=== PATIENT | female | born 1955 | race Caucasian/White ===

== ENCOUNTER 2017-05-15 19:31 | Emergency (ER) | payer BC, OTHER ==
--- NOTE | 2017-05-15 21:29 | UC ---
Skin Complaint HPI - HPI Summary HPI Summary: 62 y/o female present to the urgent care c/o a rash in her forehead and chin since Tuesday after he visit the etcher aircraft. Pt reports she was place in the etcher aircraft machine, her itchiness started, then she developed some discrete blisters. She states she takes Vancyclovir on a regular basis for prevention of shingles. However she thinks is something else. She request a wound culture since the pt that was placed in that machine had a rash in his skin. Pt denies fever, SOB, Chest pain , N/V/D. Pt states she is allergic to Benadryl, her Tylenol PM is helping with the itchiness. - History of Current Complaint Chief Complaint: UCSkin Time Seen by Provider: 05/15/17 20:59 Stated Complaint: ITCHY RASHES ON FACE Hx Obtained From: Patient Hx Last Menstrual Period: menopausal ?: No Onset/Duration: Sudden Onset, Lasting Days, Still Present Skin Exposure Onset/Duration: Days Ago Timing: Constant Onset Severity: Mild Current Severity: Mild Pain Intensity: 0 Pain Scale Used: 0-10 Numeric Location: Discrete - redness with some blisters. Character: Pruritus, Redness Aggravating: Nothing Alleviating: OTC Meds Associated Signs & Symptoms: Positive: Negative. Negative: Nausea, Vomiting, Fever, Tenderness, Joint Swelling - Allergy/Home Medications Allergies/Adverse Reactions: Allergies Allergy/AdvReac Type Severity Reaction Status Date / Time Penicillins Allergy Severe Unknown Verified 12/27/16 08:53 Reaction Details Adhesive Tape Allergy Rash Verified 12/27/16 08:53 Diphenhydramine AdvReac Anxiety Verified 12/27/16 08:53 [From Benadryl] FLAX SEED Allergy Rash Uncoded 12/27/16 08:53 Home Medications: Home Medications Tizanidine HCl [Zanaflex] 2 mg PO 05/15/17 [History] Review of Systems Constitutional: Negative Skin: Rash - discrete red eruption in face and chin Eyes: Negative ENT: Negative Respiratory: Negative Cardiovascular: Negative Gastrointestinal: Negative Genitourinary: Negative Motor: Negative Neurovascular: Negative Musculoskeletal: Negative Neurological: Negative Psychological: Negative All Other Systems Reviewed And Are Negative: Yes PMH/Surg Hx/FS Hx/Imm Hx Previously Healthy: Yes Other Endocrine History: fibromyalgia, Cardiovascular History: Hypertension Neurological History: Other Other Neurological History: Neuropathy - Surgical History Surgical History: Yes Surgery Procedure, Year, and Place: hysterectomy. x 4. tonsills. lumpectomy bilat shoulder - 2 SURGERIES. COLONOSCOPY- [facility] 2015 [place] - Family History Known Family History: Positive: None - Pt denies any FMHx - Social History Occupation: Retired Lives: With Family Alcohol Use: None Substance Use Type: None Smoking Status (MU): Former Smoker Type: Cigarettes Amount Used/How Often: 1/2 PPDX 4 YEARS Have You Smoked in the Last Year: No When Did the Patient Quit Smoking/Using Tobacco: 1973 - Immunization History Most Recent Tetanus Shot: Jul 2015 Physical Exam Triage Information Reviewed: Yes Appearance: Well-Appearing, No Pain Distress, Well-Nourished, Obese Vital Signs: Initial Vital Signs Temp 97.2 F 05/15/17 19:38 Pulse 77 05/15/17 19:38 Resp 18 05/15/17 19:38 BP 128/66 05/15/17 19:38 Pulse Ox 97 05/15/17 19:38 Vital Signs Reviewed: Yes Eye Exam: Normal Eyes: Positive: Conjunctiva Clear - PERRLA, EOMI, Fundi grossly normal ENT Exam: Normal ENT: Positive: Normal ENT inspection, Hearing grossly normal, Pharynx normal, TMs normal Dental Exam: Normal Neck exam: Normal Respiratory Exam: Normal Respiratory: Positive: Chest non-tender, Lungs clear, Normal breath sounds Cardiovascular Exam: Normal Cardiovascular: Positive: RRR, No Murmur, Pulses Normal Abdominal Exam: Normal Abdomen Description: Positive: Nontender, No Organomegaly, Soft. Negative: CVA Tenderness (R), CVA Tenderness (L) Bowel Sounds: Positive: Present Musculoskeletal Exam: Normal Musculoskeletal: Positive: Strength Intact, ROM Intact, No Edema Neurological Exam: Normal Psychological Exam: Normal Skin: Positive: rashes - left side of forehead with discrete erythemaous eruption w/ 3 blisters, non tender to palaption. Chin woth similar eruption and 4 blisters with clear discharge. Course/Dx - Course Course Of Treatment: 62 y/o female present to the urgent care c/o a rash in her forehead and chin since Tuesday after he visit the etcher aircraft. Pt reports she was place in the etcher aircraft machine, her itchiness started, then she developed some discrete blisters. She states she takes Vancyclovir on a regular basis for prevention of shingles. However she thinks is something else. She request a wound culture since the pt that was placed in that machine had a rash in his skin. Pt denies fever, SOB, Chest pain , N/V/D. Pt states she is allergic to Benadryl, her Tylenol PM is helping with the itchiness. HX obtained. PE abnormal findings:left side of forehead with discrete erythemaous eruption w/ 3 blisters, non tender to palaption. Chin woth similar eruption and 4 blisters with clear discharge. Pt already taking Vancyclovir prophilactically for shingles. Wound cultures taken from the chin and ordered also for herpes. Pt Rx BAcitracin topical oinment to apply TID . Pt advised that if anything else abnormal returns from lab, she will receive a call from us. Or if symptoms worsent to return to the urgent care of f/u with her PCP. Pt understood and agreed. - Differential Diagnoses - Skin Complaint Differential Diagnoses: Allergic Reaction, Cellulitis, Eczema, Urticaria, Varicella Zoster - Diagnoses Provider Diagnoses: unspecified rash r/o herpes zoster Discharge - Discharge Plan Condition: Stable Disposition: HOME Prescriptions: Bacitracin OINTMENT* 1 applic TOPICAL TID #1 tube Patient Education Materials: Acute Rash (ED), Shingles (ED) Referrals: Odessa Odom MD [Primary Care Provider] - 1 Week Additional Instructions: Please apply topical antibiotic in affected area as indicated. Specimen sent to lab, if anything abnormal you will receive a call from us for further treatment. Continue taking the Vancyclovir as directed. If you do not improve or if symptoms worsen after the course of antibiotics, you should either follow up with your PCP or return to the urgent care for further evaluation and treatment.
[2017-05-15 21:36] VITALS: BP 156/74
== END 2017-05-15 21:30 | disposition home or self-care (01) ==
LOC: UCEAST 19:31
DX: R21 Rash and other nonspecific skin eruption (principal)
CPT/HCPCS: 87070; 87205; 87529; 99212; G0463

== ENCOUNTER 2017-11-14 05:56 | Emergency (ER) | payer BC ==
[2017-11-14] MEDS ORDERED: Metoclopramide IV* 5 MG/ML 2 ML VIAL IV ONE (07:48)
[2017-11-14] MEDS ORDERED: Ketorolac INJ* 30 MG/ML 1 ML VIAL IV ONE (07:48)
[2017-11-14] MEDS ORDERED: NS 0.9% 1000 ML* 1,000 ML IV ONE (07:48)
[2017-11-14 09:53] LABS: ABS Basophils 0.1 10^3/ul (0-0.2); ABS Eosinophils 0.1 10^3/ul (0-0.6); ABS Lymphocytes 2.8 10^3/ul (1.0-4.8); ABS Monocytes 0.3 10^3/ul (0-0.8); ABS Neutrophils 4.6 10^3/ul (1.5-7.7); ABS Nucleated RBC 0 10^3/ul; Eosinophil % 0.9 % (0-6); Hematocrit 41 % (35-47); Hemoglobin 13.8 g/dl (12.0-16.0); Mean Corpuscular HGB Conc 34 g/dl (31-36); Mean Corpuscular Hemoglobin 31 pg (27-31); Mean Corpuscular Volume 92 fL (80-97); Mean Platelet Volume 8 um3 (7.4-10.4); Nucleated Red Blood Cells % 0; Platelet Count 266 10^3/ul (150-450); Red Blood Count 4.44 10^6/ul (4.0-5.4); Red Cell Distribution Width 13 % (10.5-15); White Blood Count 7.9 10^3/ul (3.5-10.8)
[2017-11-14 10:08] LABS: INR 0.91 (0.77-1.02)
[2017-11-14 10:10] LABS: EGFR Non-African American 82.9 (>60)
--- NOTE | 2017-11-14 10:35 | RAD ---
HISTORY: Vertigo COMPARISONS: February 08, 2015 TECHNIQUE: Multiple contiguous axial CT scans were obtained of the head without intravenous contrast. FINDINGS: HEMORRHAGE/INFARCT: There is no hemorrhage or acute infarct. MASSES/SHIFT: There is no mass or shift. EXTRA-AXIAL SPACES: There are no extra-axial fluid collections. SULCI AND VENTRICLES: The sulci and ventricles are normal in size and position for the patient's stated age. CEREBRUM: There are no focal parenchymal abnormalities. BRAINSTEM: There are no focal parenchymal abnormalities. CEREBELLUM: There are no focal parenchymal abnormalities. VESSELS: The vessels are grossly normal. PARANASAL SINUSES: The paranasal sinuses are clear. ORBITS: The orbits are unremarkable. BONES AND SOFT TISSUE: No bone or soft tissue abnormalities are noted. OTHER: None IMPRESSION: NO ACUTE INTRACRANIAL PATHOLOGY.
[2017-11-14] MEDS ORDERED: Iohexol 350* (CONTRAST) 500 ML MDV IV ONE (11:57)
--- NOTE | 2017-11-14 12:50 | RAD ---
HISTORY: Dizziness, headaches, double vision COMPARISONS: Head CT dated November 14, 2014 TECHNIQUE: Multiple contiguous axial CT scans were obtained of the head and neck After the administration of nonionic intravenous contrast timed to the systemic arterial phase of contrast enhancement. Coronal and sagittal multiplanar reformations are submitted for review. Multiple 3-D maximum intensity projection reconstructions are also submitted for review. FINDINGS: CTA NECK: AORTIC ARCH: There is a normal three-vessel branching pattern of the aortic arch. There is no ostial or proximal stenosis of the cephalic great vessels. RIGHT VERTEBRAL ARTERY: The right vertebral artery is patent along its course, without stenosis. LEFT VERTEBRAL ARTERY: The left vertebral artery is patent along its course, without stenosis. DOMINANCE: The left vertebral artery is dominant. RIGHT COMMON CAROTID ARTERY: The right common carotid artery is patent. The right carotid bifurcation occurs at C3-C4 RIGHT INTERNAL CAROTID ARTERY: There is no right internal carotid artery stenosis by NASCET criteria. RIGHT EXTERNAL CAROTID ARTERY: The right external carotid artery is unremarkable. LEFT COMMON CAROTID ARTERY: The left common carotid artery is patent. The left carotid bifurcation occurs at C3-C4 LEFT INTERNAL CAROTID ARTERY: There is no left internal carotid artery stenosis by NASCET criteria. LEFT EXTERNAL CAROTID ARTERY: The left external carotid artery is unremarkable. VENOUS CIRCULATION: The venous system is unremarkable. SALIVARY GLANDS: The parotid glands, submandibular glands, sublingual glands are normal. NASAL CAVITY/NASOPHARYNX: The nasal cavity and nasopharynx are normal. ORAL CAVITY/OROPHARYNX: The oral cavity is obscured by streak artifact from dental amalgam. The visualized oral cavity and oropharynx are unremarkable. LARYNGEAL APPARATUS/HYPOPHARYNX: The laryngeal apparatus and hypopharynx are normal. UPPER AIRWAY/UPPER ESOPHAGUS: The visualized upper airway and esophagus are normal. LUNG APICES: The lung apices are clear. THYROID GLAND: The thyroid gland is normal. LYMPH NODES: There is no lymphadenopathy by size criteria. BONES AND SOFT TISSUES: Mild degenerative changes are noted. There is a dysraphic defect of the posterior arch of C1 CTA HEAD: INTRACRANIAL CIRCULATION: There is no aneurysm, vascular malformation, occlusion, or stenosis of the visualized intracranial circulation. The anterior communicating artery complex is clear. Bilateral posterior communicating arteries are identified. VENOUS CIRCULATION: The venous system is unremarkable. PERFUSION: There is no obvious parenchymal perfusion deficit. HEMORRHAGE/INFARCT: There is no hemorrhage or acute infarct. MASSES/SHIFT: There is no mass or shift. EXTRA-AXIAL SPACES: There are no extra-axial fluid collections. SULCI AND VENTRICLES: The sulci and ventricles are normal in size and position for the patient's stated age. CEREBRUM: There are no focal parenchymal abnormalities. BRAINSTEM: There are no focal parenchymal abnormalities. CEREBELLUM: There are no focal parenchymal abnormalities. PARANASAL SINUSES: The paranasal sinuses are clear. ORBITS: The orbits are unremarkable. BONES AND SOFT TISSUE: No bone or soft tissue abnormalities are noted. OTHER: There is no abnormal enhancement. IMPRESSION: 1. NO INTERNAL CAROTID ARTERY STENOSIS BY NASCET CRITERIA. 2. NO ANEURYSM, VASCULAR MALFORMATION, OCCLUSION, OR STENOSIS OF THE VISUALIZED INTRACRANIAL CIRCULATION. CPT II Codes: 3100F
--- NOTE | 2017-11-14 13:23 | RAD ---
HISTORY: Weakness, double vision COMPARISONS: PET CT dated November 14, 2012 TECHNIQUE: The following sequences were obtained of the head: Sagittal T1-weighted images, axial T2-weighted images, axial FLAIR images, axial susceptibility weighted images, axial T1-weighted images. Additionally, axial diffusion-weighted images were obtained with calculated apparent diffusion coefficients. FINDINGS: HEMORRHAGE/INFARCT: There is no hemorrhage or acute infarct. MASSES/SHIFT: There is no mass or shift. EXTRA-AXIAL SPACES/MENINGES: There are no extra-axial fluid collections. SULCI AND VENTRICLES: The sulci and ventricles are normal in size and position for the patient's stated age. CEREBRUM: There are few, scattered, small foci of elevated T2/FLAIR signal within the periventricular and subcortical white matter. BRAINSTEM: There are no focal parenchymal abnormalities. CEREBELLUM: There are no focal parenchymal abnormalities. The cerebellar tonsils are normal in size and position. SELLA: The sella is normal. PINEAL: The pineal region is clear. CP ANGLE/TEMPORAL BONES: The labyrinthine structures are grossly normal. VESSELS: Normal flow-voids are noted within the visualized vertebral vasculature. DIFFUSION ABNORMALITIES: There are no diffusion abnormalities. PARANASAL SINUSES/MASTOIDS: The paranasal sinuses are clear. ORBITS: The orbits are unremarkable. BONES AND SOFT TISSUE: No bone or soft tissue abnormalities are noted. OTHER: None IMPRESSION: 1. THERE ARE FEW, SCATTERED, SMALL FOCI OF ELEVATED T2/FLAIR SIGNAL WITHIN THE PERIVENTRICULAR AND SUBCORTICAL WHITE MATTER. WHILE THESE FINDINGS ARE NONSPECIFIC, THEY CAN BE SEEN IN ASSOCIATION WITH MIGRAINE HEADACHE, THE SEQUELA OF PREVIOUS INFECTION OR INFLAMMATION, AND CHRONIC SMALL VESSEL ISCHEMIA. DEMYELINATING DISEASE IS ALSO WITHIN THE DIFFERENTIAL, BUT IS CONSIDERED LESS LIKELY IN THE ABSENCE OF THE APPROPRIATE CLINICAL PRESENTATION. 2. THERE IS NO RESTRICTED DIFFUSION TO SUGGEST ACUTE INFARCT
[2017-11-14 14:49] VITALS: BP 141/68
--- NOTE | 2017-11-14 15:00 | ED ---
Jorge Cardona Thomas, scribed for Elton Gamboa MD on 11/14/17 at 0741 . Complex/Multi-Sys Presentation - HPI Summary HPI Summary: The patient is a 62 year old female presenting to the ED complaining of dizziness and double vision that began yesterday at 12:00. She complains of a spinning sensation when she closes her eyes. The patient has a history of ocular migraines and she also complains of pain to her left eye with onset two days ago. In the emergency department, she also complains of a dull headache to the back of her head. Today, she has been intermittently nauseous. The patient has been taking Rizatriptan. - History Of Current Complaint Chief Complaint: EDDizziness Time Seen by Provider: 11/14/17 07:25 Hx Obtained From: Patient Onset/Duration: Lasting Days - 2, Still Present Timing: Constant Severity Currently: Moderate Location: Pain At: - left eye Character: Dull Alleviating Factor(s): Patient has been taking Rizatriptan Associated Signs And Symptoms: Positive: Other - Dizziness, double vision, nausea, headache - Allergies/Home Medications Allergies/Adverse Reactions: Allergies Allergy/AdvReac Type Severity Reaction Status Date / Time Penicillins Allergy Severe Unknown Verified 11/14/17 06:10 Reaction Details Adhesive Tape Allergy Rash Verified 11/14/17 06:10 Diphenhydramine AdvReac Anxiety Verified 11/14/17 06:10 [From Benadryl] FLAX SEED Allergy Rash Uncoded 11/14/17 06:10 Home Medications: Home Medications Gabapentin CAP(*) [Neurontin 300 CAP(*)] 600 mg PO QAM 11/14/17 [History Confirmed 11/14/17] Gabapentin CAP(*) [Neurontin 300 CAP(*)] 600 mg PO QPM 11/14/17 [History Confirmed 11/14/17] Irbesartan (NF) [Avapro (NF)] 75 mg PO QPM 11/14/17 [History Confirmed 11/14/17] Irbesartan (NF) [Avapro (NF)] 150 mg PO QAM 11/14/17 [History Confirmed 11/14/17 ] Methocarbamol TAB* [Robaxin 500 MG TAB*] 500 mg PO TID PRN 11/14/17 [History Confirmed 11/14/17] Mirabegron (NF) [Myrbetriq (NF)] 50 mg PO QPM 11/14/17 [History Confirmed ] Pantoprazole TAB (NF) [Protonix TAB (NF)] 40 mg PO QAM 11/14/17 [History Confirmed 11/14/17] Simethicone TAB* [Mylicon TAB*] 80 mg PO AC PRN 11/14/17 [History Confirmed ] ValACYclovir (*) [Valtrex 500 mg (*)] 500 mg PO DAILY PRN 11/14/17 [History Confirmed 11/14/17] PMH/Surg Hx/FS Hx/Imm Hx Previously Healthy: No Endocrine/Hematology History: Reports: Hx Anemia - 15 YEARS AGO, Other Endocrine /Hematological Disorders - hyperparathyroid Denies: Hx Diabetes, Hx Systemic Lupus Erythematosus, Hx Thyroid Disease Cardiovascular History: Reports: Hx Hypertension, Other Cardiovascular Problems/ Disorders Denies: Hx Congestive Heart Failure, Hx Pacemaker/ICD Respiratory History: Reports: Hx Asthma - PRN INHALER Denies: Hx Chronic Obstructive Pulmonary Disease (COPD) GI History: Reports: Hx Gastroesophageal Reflux Disease - ON MEDICATION FOR, Hx Hiatal Hernia, Hx Irritable Bowel - LOW FOD DIET Denies: Hx Ulcer History: Reports: Other Problems/Disorders - CYST ON THE LEFT KIDNEY- DR. CAREY- FOLLOWS Denies: Hx Dialysis, Hx Renal Disease Musculoskeletal History: Reports: Hx Arthritis - NECK, Hx Back Problems, Hx Bursitis - SHOULDERS, HIPS, Hx Fibromyalgia, Hx Tendonitis Denies: Hx Rheumatoid Arthritis, Hx Osteoporosis Sensory History: Reports: Hx Cataracts - RIGHT EYE, Hx Contacts or Glasses, Hx Hearing Problem Denies: Hx Hearing Aid Opthamlomology History: Reports: Hx Cataracts - RIGHT EYE, Hx Contacts or Glasses Neurological History: Reports: Hx Migraine - EVERY 2 MONTHS Psychiatric History: Denies: Hx Panic Disorder - Cancer History Hx Chemotherapy: No Hx Radiation Therapy: No - Surgical History Surgery Procedure, Year, and Place: hysterectomy. x 4. tonsills. lumpectomy bilat shoulder - 2 SURGERIES. COLONOSCOPY- [facility] 2015 [place] Hx Anesthesia Reactions: Yes - 4TH DIDN'T TAKE/ ASPIRATED DURING COLONOSCOPY 2015 Infectious Disease History: No Infectious Disease History: Reports: Hx Shingles - possibly Denies: Hx Clostridium Difficile, Hx Hepatitis, Hx Human Immunodeficiency Virus (HIV), Hx Tuberculosis, Hx Known/Suspected VRE, Hx Known/Suspected VRSA, History Other Infectious Disease, Traveled Outside the [place] in Last 30 Days - Family History Known Family History: Positive: Other - Patient denies any relevant FHx - Social History Alcohol Use: None Hx Substance Use: No Substance Use Type: Reports: None Hx Tobacco Use: Yes Smoking Status (MU): Former Smoker Type: Cigarettes Amount Used/How Often: 1/2 PPDX 4 YEARS Have You Smoked in the Last Year: No Review of Systems Negative: Fever Positive: Diplopia Positive: Nausea Positive: Headache All Other Systems Reviewed And Are Negative: Yes Physical Exam - Summary Physical Exam Summary: Appearance: The patient is well-nourished in no acute distress and in no acute pain. Skin: The skin is warm and dry and skin color reflects adequate perfusion. HENT: The head is normocephalic and atraumatic. Nares are patent and without drainage. Mouth reveals moist mucous membranes and the throat is without erythema and exudate. The external ears are intact. The ear canals are patent and without drainage. The tympanic membranes are intact. Eye: The pupils are equal and reactive. The conjunctivae are clear and without drainage. The patient complains of double vision when looking to the left and down, but the extraocular movement are intact on exam. Fundoscopic exam is normal. Neck: the neck is supple with full range of motion and non-tender. There are no carotid bruits. There is no neck vein distension. Respiratory: Chest is non-tender. Lungs are clear to auscultation and breath sounds are symmetrical and equal. Cardiovascular: Heart is regular rate and rhythm. There is no murmur or rub auscultated. There is no peripheral edema and pulses are symmetrical and equal. Abdomen: The abdomen is soft and non-tender. There are normal bowel sounds heard in all four quadrants and there is no organomegaly palpated. Musculoskeletal: There is no back tenderness noted. Extremities are non-tender with full range of motion. There is good capillary refill. There is no peripheral edema or calf tenderness elicited. Neurological: Patient is alert and oriented to person, place and time. The patient has symmetrical motor strength in all four extremities. Cranial nerves are grossly intact. Deep tendon reflexes are symmetrical and equal in all four extremities. Psychiatric: The patient has an appropriate affect and does not exhibit any anxiety or depression. Triage Information Reviewed: Yes Vital Signs On Initial Exam: Initial Vitals Temp Pulse Resp BP Pulse Ox 98.0 F 72 16 129/67 97 11/14/17 06:05 11/14/17 06:05 11/14/17 06:05 11/14/17 06:05 11/14/17 06:05 Vital Signs Reviewed: Yes - Gloria Coma Scale Coma Scale Total: 15 Diagnostics - Vital Signs Vital Signs Temp Pulse Resp BP Pulse Ox 11/14/17 07:00 72 122/63 95 11/14/17 06:22 74 96 11/14/17 06:21 136/58 11/14/17 06:05 98.0 F 72 16 129/67 97 - Laboratory Lab Results: Lab Results 11/14/17 11/14/17 11/14/17 Range/Units 09:44 09:44 09:44 WBC 7.9 (3.5-10.8) 10^3/ul RBC 4.44 (4.0-5.4) 10^6/ul Hgb 13.8 (12.0-16.0) g/dl Hct 41 (35-47) % MCV 92 (80-97) fL MCH 31 (27-31) pg MCHC 34 (31-36) g/dl RDW 13 (10.5-15) % Plt Count 266 (150-450) 10^3/ul MPV 8 (7.4-10.4) um3 Neut % (Auto) 58.7 (38-83) % Lymph % (Auto) 35.0 (25-47) % Hemphill % (Auto) 4.4 (1-9) % Eos % (Auto) 0.9 (0-6) % Baso % (Auto) 1.0 (0-2) % Absolute Neuts (auto) 4.6 (1.5-7.7) 10^3/ul Absolute Lymphs (auto) 2.8 (1.0-4.8) 10^3/ul Absolute Monos (auto) 0.3 (0-0.8) 10^3/ul Absolute Eos (auto) 0.1 (0-0.6) 10^3/ul Absolute Basos (auto) 0.1 (0-0.2) 10^3/ul Absolute Nucleated RBC 0 10^3/ul Nucleated RBC % 0 INR (Anticoag Therapy) 0.91 (0.77-1.02) Sodium 136 (133-145) mmol/L Potassium 3.6 (3.5-5.0) mmol/L Chloride 102 (101-111) mmol/L Carbon Dioxide 26 (22-32) mmol/L Anion Gap 8 (2-11) mmol/L BUN 14 (6-24) mg/dL Creatinine 0.71 (0.51-0.95) mg/dL Est GFR ( Amer) 106.6 (>60) Est GFR (Non-Af Amer) 82.9 (>60) BUN/Creatinine Ratio 19.7 (8-20) Glucose 128 H (70-100) mg/dL Lactic Acid (0.5-2.0) mmol/L Calcium 10.0 (8.6-10.3) mg/dL Total Bilirubin 0.30 (0.2-1.0) mg/dL AST 15 (13-39) U/L ALT 15 (7-52) U/L Alkaline Phosphatase 117 H (34-104) U/L Troponin I 0.00 (<0.04) ng/mL Total Protein 7.1 (6.4-8.9) g/dL Albumin 4.0 (3.2-5.2) g/dL Globulin 3.1 (2-4) g/dL Albumin/Globulin Ratio 1.3 (1-3) 11/14/17 Range/Units 09:44 WBC (3.5-10.8) 10^3/ul RBC (4.0-5.4) 10^6/ul Hgb (12.0-16.0) g/dl Hct (35-47) % MCV (80-97) fL MCH (27-31) pg MCHC (31-36) g/dl RDW (10.5-15) % Plt Count (150-450) 10^3/ul MPV (7.4-10.4) um3 Neut % (Auto) (38-83) % Lymph % (Auto) (25-47) % Hemphill % (Auto) (1-9) % Eos % (Auto) (0-6) % Baso % (Auto) (0-2) % Absolute Neuts (auto) (1.5-7.7) 10^3/ul Absolute Lymphs (auto) (1.0-4.8) 10^3/ul Absolute Monos (auto) (0-0.8) 10^3/ul Absolute Eos (auto) (0-0.6) 10^3/ul Absolute Basos (auto) (0-0.2) 10^3/ul Absolute Nucleated RBC 10^3/ul Nucleated RBC % INR (Anticoag Therapy) (0.77-1.02) Sodium (133-145) mmol/L Potassium (3.5-5.0) mmol/L Chloride (101-111) mmol/L Carbon Dioxide (22-32) mmol/L Anion Gap (2-11) mmol/L BUN (6-24) mg/dL Creatinine (0.51-0.95) mg/dL Est GFR ( Amer) (>60) Est GFR (Non-Af Amer) (>60) BUN/Creatinine Ratio (8-20) Glucose (70-100) mg/dL Lactic Acid 2.4 H* (0.5-2.0) mmol/L Calcium (8.6-10.3) mg/dL Total Bilirubin (0.2-1.0) mg/dL AST (13-39) U/L ALT (7-52) U/L Alkaline Phosphatase (34-104) U/L Troponin I (<0.04) ng/mL Total Protein (6.4-8.9) g/dL Albumin (3.2-5.2) g/dL Globulin (2-4) g/dL Albumin/Globulin Ratio (1-3) Result Diagrams: 11/14/17 09:44 11/14/17 09:44 Lab Statement: Any lab studies that have been ordered have been reviewed, and results considered in the medical decision making process. - CT CT Brain CT Interpretation: No Acute Changes - NO ACUTE INTRACRANIAL PATHOLOGY. Dr. Gamboa has reviewed this report. CT Interpretation Completed By: Radiologist CTA Head CT Interpretation: No Acute Changes - 1. NO INTERNAL CAROTID ARTERY STENOSIS BY NASCET CRITERIA. 2. NO ANEURYSM, VASCULAR MALFORMATION, OCCLUSION, OR STENOSIS OF THE VISUALIZED INTRACRANIAL CIRCULATION. Dr. gamboa has reviewed this report. CT Interpretation Completed By: Radiologist - EKG 09:41 Cardiac Rate: NL EKG Rhythm: Sinus Rhythm - at 80 BPM EKG Interpretation: LVH. No significant change since 09/02/16. - Additional Comments Diagnostic Additional Comments: MRI Brain. Interpreted by radiologist. Impression: 1. THERE ARE FEW, SCATTERED, SMALL FOCI OF ELEVATED T2/FLAIR SIGNAL WITHIN THE PERIVENTRICULAR AND SUBCORTICAL WHITE MATTER. WHILE THESE FINDINGS ARE NONSPECIFIC, THEY CAN BE SEEN IN ASSOCIATION WITH MIGRAINE HEADACHE, THE SEQUELA OF PREVIOUS INFECTION OR INFLAMMATION, AND CHRONIC SMALL VESSEL ISCHEMIA. DEMYELINATING DISEASE IS ALSO WITHIN THE DIFFERENTIAL, BUT IS CONSIDERED LESS LIKELY IN THE ABSENCE OF THE APPROPRIATE CLINICAL PRESENTATION. 2. THERE IS NO RESTRICTED DIFFUSION TO SUGGEST ACUTE INFARCT. Dr. Gamboa has reviewed this report. Complex Multi-Symp Course/Dx Course Of Treatment: Ms. Suarze presented with about 24 hours of spinning dizziness and double vision. It started with a severe pain in the right eye which then settled into an occipital and frontal WINTERS that feels like her typical migraine. I first treated the migraine with complete relief of her WINTERS but no effect on the other symptoms. Therefore a more thorough W/U was obtained and negative. I consulted Dr. Lee who requested an MRI and CTA and came to see the patient. All her W/U was negative and he recommended D/C and an ASA q day. 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 Lee, neurology, came to evaluate the patient. He recommends that the patient take 1 aspirin per day. Discharge - Discharge Plan Condition: Stable Disposition: HOME Referrals: [facility] [Outside] - 3 Days Additional Instructions: Take 1 aspirin per day. Follow up with your primary care provider in three days. Return to the emergency department for any new or worsening symptoms. The documentation as recorded by the Jorge escobedo Thomas accurately reflects the service I personally performed and the decisions made by me, Elton Gamboa MD.
--- NOTE | 2017-11-14 20:13 | CONS ---
CONSULTATION REPORT: DATE OF CONSULT: 11/14/17 LOCATION: ER. PRIMARY CARE PROVIDER: Odessa Rick MD REASON FOR CONSULTATION: Dizziness, double vision, headache. HISTORY OF PRESENT ILLNESS: Ms. Suarez is a very nice 62-year-old female who presents to the hospital with onset of right eye pain, some double vision and dizziness which began yesterday. She states that she woke up and she was having pain, shooting pains, in her right eye which were "severe" in nature. They were intermittent but persistent. She took some ibuprofen which alleviated the pain but did not completely resolve the pain. She has a history of migraine headaches dating back at least 5 years. At times, she will have ophthalmic migraines in which she gets visual floaters and wavy lines. These are not typically associated with any severe headache or nausea or vomiting. Some photophobia but no phonophobia. She also gets migraine type headaches that originate in the back of her neck and radiate forward. These are occasionally associated with nausea and vomiting and light and sound sensitivity. These have been ongoing for some time and she takes rizatriptan for them. Yesterday when the headaches began, she states that she took rizatriptan 3 times total and that it helped with her headache. She also noted the onset of dizziness, she states that she felt like the room was spinning at times. She felt very unsteady on her feet. She went to bed and was still in bed. Whenever she would get up to go to the bathroom, she noticed worsening dizziness. She also noted some double vision, mainly in the right visual goldman. She states when she closes one eye over the other, she can see fine, but with binocular vision she has double vision to the right. She states for the last several weeks, she has noticed some tightness in her right eye, some pooling at times. She states that when she manipulates her neck, she often can relieve that tension in her right eye. She does have chronic tinnitus bilaterally as well. When she gets dizzy, she notes that the room moves, but is not directly spinning. She does feel nauseated with that. She has a history of neuropathy with lower extremity symptoms, but has developed some intermittent left hand numbness, which comes and goes since the headaches started. She was brought to the hospital and given Toradol, which has helped her headache. The headache has since resolved, but she continues to have the dizziness and double vision, which has not improved. She denies any recent head trauma. There is no focal weakness that she is aware of. There is no facial sensation changes. Her at the bedside states that she does appear to have a drooping of her right eyelid, which he states is new. He states that her right eye also "looks smaller" than her left eye. This may have been ongoing for several days , he is unclear. She did have a CT of the head on admission, I personally reviewed the films, there are no acute intracranial abnormalities. Some mild atrophy is noted. PAST MEDICAL HISTORY: Includes: 1. History of significant back pain. 2. Fibromyalgia, for which she is seeing Pain Management. 3. Hypertension. 4. High cholesterol. 5. Migraine headaches as noted. 6. She also has a history of neuropathy. She states that she has seen a neurologist in [place] who is scheduled to do another EMG/nerve conduction study. 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 PAST SURGICAL HISTORY: Includes: 1. C-sections in 1979, 1980, 1983, 1967. 2. Hysterectomy total. 3. Lumpectomy. 4. Sphincterotomy. 5. Tonsillectomy. MEDICATIONS: At home: 1. Simethicone 80 mg as necessary. 2. Methocarbamol 500 mg p.o. t.i.d. as necessary. 3. . 4. Albuterol inhaler. 5. Gabapentin 600 mg in the morning and 600 mg in the evening, 300 mg at noon. 6. Avapro 150 mg in a.m. and 75 mg in p.m. 7. Hydrochlorothiazide 25 mg daily. 8. Protonix 40 mg in the morning. 9. Myrbetriq 50 mg in the evening. 10. Linzess 145 mcg p.o. daily p.r.n. 11. Valtrex 500 mg p.o. daily p.r.n. 12. Maxalt 10 mg p.o. daily p.r.n. ALLERGIES: PENICILLIN. FAMILY HISTORY: Significant for cancer. Father had a heart attack. Mother had a heart attack, thyroid disease and vertigo. Paternal grandfather with emphysema. SOCIAL HISTORY: She previously worked in [employer] retired. She denies any tobacco, alcohol or drug use. She lives with her . PHYSICAL EXAMINATION: Vital Signs: Blood pressure 122/55 to 133/67 to 152/81. Pulse is 79, O2 sat of 100%. She is breathing comfortably, 12 respirations per minute. In general, she is a well-nourished, well-developed female. She is sitting on the side of her hospital bed. is at the bedside. She is well dressed, well groomed and pleasant. HEENT: She is normocephalic, atraumatic. Sclerae are anicteric. There is no conjunctival injection. Mucous membranes are moist. Oropharynx is clear. Nares are patent. Neck is supple. No thyromegaly. No carotid bruits. No meningismus. Chest clear to auscultation bilaterally. Cardiovascular: Regular rate and rhythm without murmurs. Abdomen is nontender. Extremities: There is no clubbing, cyanosis or edema present. Her skin is warm and dry. On neurologic exam, she is awake, alert and oriented x3. Her speech is slow. There is no dysarthria. Repetition and recall are both intact. Cranial nerves: Pupils are equally round and reactive to light and accommodation. No APD is apparent. There is no papilledema bilaterally. Extraocular muscles: She appears to have some lateral gaze nystagmus bilaterally 2 to 3 beats. In addition, she has double vision when looking to the right upper, middle and lower quadrants. There appears to be some mild right lateral rectus weakness. I could not detect any superior or inferior oblique weakness bilaterally. Visual goldman are full bilaterally with some double vision. Face symmetry: She has some drooping of her right eyebrow, no obvious ptosis, no lower facial droop. Facial sensation is intact in all areas bilaterally. Hearing is intact to finger rub bilaterally with some tinnitus bilaterally, chronic in nature. Tongue is midline. Palate raises symmetrically. Sternocleidomastoid and trapezius are both intact. Motor exam: She spontaneously moves all extremities antigravity, tone and bulk are both normal. She is 5/5 throughout. There is no focal findings. DTRs are 1+ and symmetric in the upper extremities, 1+ at the right patella, trace at the ankle, downgoing Babinski's, trace at the left patella, trace at the ankle left and downgoing Babinski on the left. Sensation is diminished to light touch, pinprick, vibration, proprioception in the lower extremities with some paresthesias to the knees bilaterally. Her Romberg is negative with eyes open. Mild sway with eyes closed. Gait is slightly wide- based and unsteady, though she feels dizzy. No shuffling, no stoop. She has no evidence of tremors with [id number]. Rapid alternating movements are intact. No ataxia noted. DIAGNOSTIC STUDIES/LAB DATA: Includes CBC with diff that is normal. INR 0.91. Complete metabolic profile with a glucose of 128, alk phos of 117, otherwise normal. Lactic acid of 2.4. Prior BRINA on 09/21/16 was normal. Prior HSV1 DNA PCR and HSV2 DNA PCR on 05/15/17 negative. HPV high risk negative on 09/12/17. Brain CT as noted above. ASSESSMENT AND PLAN: Ms. 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 History of migraine headaches dating back years, occasionally ophthalmic migraines, occasionally migraines that originate in the neck. She presents to the hospital with a history of eye pain on the right starting yesterday, acute onset ; some dizziness and double vision. The dizziness appears to be vertiginous in nature. She has some nystagmus on examination. She also appears to have some mild right lateral rectus weakness with double vision in all quadrants to the right. There is no vision loss. She has some mild facial asymmetry with weakness in the right upper face. No lower facial droop. At this point, my concern is that she may have suffered a small stroke given the apparent extraocular muscles weakness, the possibility of a cranial nerve stroke exists, likely 6 cranial on the right, if present. In addition given the vertiginous component which is new and a cerebellar stroke is possible. She does have risk factors including hypertension and hyperlipidemia. She also has some facial asymmetry with possible ptosis on the right, eyebrow weakness on the right. Suspicion for third nerve involvement is low at this point. Differential also includes an atypical migraine with some neurologic features, benign positional vertigo. There is always a concern for cavernous sinus pathology involving multiple cranial nerves, some extrinsic ocular mass in the orbit. 1. The plan is to get an MRI of her brain to look for any strokes or other lesions that could be causing mass effect. 2. CT angiogram of the head and neck to look for an aneurysms or vascular malformations which could be causing her symptoms. I will review those studies. I did briefly speak with the ER doctor and we are considering admission for stroke workup including an echocardiogram and lab work. We will hold on aspirin at this point, but consider starting her on a baby aspirin. Currently her migraine has resolved, but she continues to have these other symptoms. We will not treat with any further pain medication at this time. I will continue to follow her in the ER and make further recommendations as necessary. Thank you for the opportunity to participate in her care. [id number]/[facility] #: [id number] 11.15.17 at 3:00 pm Addendum: I personally reviewed the MRI and CTA findings. I spoke with the patient afterwards who was feeling better although continued to have some "blurred vision" when looking to the right. Her dizziness has improved and her headache resolved with treatment. I recommended starting her on a baby aspirin. We discussed the fact that her symptoms could be related to a palsy of the right CN and often, these symptoms will improve over time. She does have a history of peripheral neuropathy, is following with a neurologist for further workup. I offered to follow her as an outpatient if she needed a local neurologist but she is to follow up with her current treatment neurologist soon. In the interim, she will start ASA 81mg q day and is to return to the ER immediately should she develop any new neurologic symptoms or her symptoms worsen. I did speak with the patient on 11.15.17 at 3:15 pm: she states her vision is better, although she remains light sensitive. Dizziness is slowly improving. She verified that she was calling her eye doctor to make a follow up appointment and also that she was following up with her Neurologist next week. Overall, she is doing better. BETTYE
== END 2017-11-14 14:49 | disposition home or self-care (01) ==
LOC: ED 05:56
DX: H49.20 Sixth [abducent] nerve palsy, unspecified eye (principal); H53.2 Diplopia; R11.0 Nausea; R51 Headache; E21.3 Hyperparathyroidism, unspecified; I10 Essential (primary) hypertension; J45.909 Unspecified asthma, uncomplicated; K44.9 Diaphragmatic hernia without obstruction or gangrene; K21.9 Gastro-esophageal reflux disease without esophagitis; Z90.710 Acquired absence of both cervix and uterus; Z88.0 Allergy status to penicillin; Z88.8 Allergy status to other drugs, medicaments and biological substances; Z91.048 Other nonmedicinal substance allergy status; Z87.891 Personal history of nicotine dependence
CPT/HCPCS: 36415; 70450; 70496; 70498; 70551; 80053; 83605; 84484; 85025; 85610; 93005; 96374; 96375; 99283; J1885; J2765; Q9967

== ENCOUNTER 2018-08-22 19:15 | Emergency (ER) | payer MEDICARE, BC ==
--- OUTSIDE RECORDS SUMMARY | 2018-08-22 19:22 | XMS REPORT ---
:1955 External Reference #:[id number] Author Organization [facility] Address [address] [place] [address] [address] [place] [address] Phone [phone] Care Team Providers Name Role Phone Odessa Rick MD Primary Care Physician Unavailable Payers Type Date Identification Numbers Payment Provider Subscriber Health Maintenance Effective: Policy Number: [facility] Rachelle Suarez Organization ([facility]) 10/31/2017 [id number] Expires: 07/31/2018 PayID: [id number] [place] [address] Medigap Part B Policy Number: [id number] Medicare Rachelle Suarez PayID: [id number] [address] [place] [address] Medigap Part B Effective: 10/31/2013 Policy Number: [id number] [facility] Rachelle Suarez PayID: [id number] [place] [address] Medigap Part B Effective: 10/31/2011 Policy Number: [facility] Smith H Erick [id number] Expires: 06/08/2018 Group Number: [id number] [address] PayID: [id number] [place] [address] Problems Date Description Provider Status Onset: 08/15/2013 Abnormal results of cardiovascular Bryan Tubbs M.D. Active function studies Onset: 08/31/2013 Benign essential hypertension Bryan Tubbs M.D. Active Onset: 08/31/2013 Mixed hyperlipidemia Bryan Tubbs M.D. Active Onset: 11/06/2014 Primary fibromyalgia syndrome Howie Chery M.D. Active Onset: 11/19/2016 Essential hypertension Bryan Tubbs M.D. Active Family History Date Family Member(s) Problem(s) Comments General Aortic Aneurysm mother General Lung aneurysm father General Breast Cancer mother General Stroke paternal grandmother General Lymphoma maternal grandmother : (age 61 Father due to Pulmonary Years) Embolism (PE) : (age 81 Mother due to Years) Parkinsons Disease Mother Aortic Aneurysm abdominal in her 60's Siblings 2 brothers . 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 Allergies, Adverse Reactions, Alerts Date Description Reaction Status Severity Comments 08/15/2013 Penicillin active took it daily for 9 years and does not want to reintroduce 08/15/2013 Flax rash active 01/08/2014 Tape active 09/29/2016 Benadryl active 09/29/2016 Naltrexone active Per pt not allergic just didn't work Medications Medication Date Status Form Strength Qnty SIG Indications Ordering Provider Irbesartan 06/13 Active Tablets 75mg 1 by mouth every day Nilton Wolfe M.D. Gabapentin 08/01 Active Capsules 300mg 450ca take two G25.81 ps pills by bobby Bhatt in M.D. the morning, one at noon and two in the evening Albuterol Active prn Unknown /0000 Hydrochlorothiazid Active Tablets 25mg 1 po qd Unknown e /0000 [place] Active Tablets 5-325mg 30tab 1-2 by Unknown /0000 s mouth q4-6 hour as needed pain Linzess Active Capsules 145mcg by mouth Unknown /0000 every day as needed Melatonin Active Capsules 3mg 1 by mouth Unknown /0000 every night at bedtime as needed Myrbetriq Active Tablets 50mg 1 by mouth Unknown /0000 ER 24HR every day Naproxen Sodium ER Active Tablets 500mg 1 tab by Unknown /0000 ER 24HR mouth twice a day with food as needed Valacyclovir HCL Active Tablets 500mg 1 by mouth Unknown /0000 every day Oxcarbazepine Active Tablets 150mg 1 by mouth Unknown /0000 twice a day Aspirin Ec Active Tablets 81mg 1 by mouth Unknown /0000 DR every day Requip 12/08 Hx Tablets 0.25mg 60tab take two G62.9 s tablets by Nova, - mouth every M.D. 05/14 night, february increase up to 3 at night to help restless legs Lidocream 09/02 Hx Cream 4% 15gm apply twice M51.36 daily as Nova, - needed for M.D. 05/14 pain Baclofen 06/28 Hx Tablets 10mg 90tab take one M54.5 s twice daily Nova, - as needed M.D. 12/08 for spasms avoid with driving, stop tizanidine Tizanidine HCL 04/28 Hx Capsules 2mg 180ca 1 or 2 cap M54.5 ps by mouth as Nova, - needed at M.D. 06/28 night for spasms Lidocream 11/29 Hx Cream 4% 15gm apply twice M51.36 daily as Nova, - needed for M.D. 09/02 pain Gabapentin 10/04 Hx Capsules 100mg 360ca take 2 tabs G25.81 ps in the Nova, - morning and M.D. 08/01 2 tabs in the evening and 1 at noon Requip 09/29 Hx Tablets 0.25mg 42tab 0.25 mg G25.81 s once daily Nova, - 1 to 3 M.D. before bedtime. After 2 days, if necessary, the dose can be increased to 0.5 mg [place] 03/18 Hx Tablets 5-325mg 30tab 1-2 by Rosita /2014 s mouth q4-6 Richardson-Yo - hour as jp, M.D. 11/06 needed pain Hydrochlorothiazid Hx Tablets 12.5mg 90tab 1 po qd Unknown e s - 01/08 Irbesartan Hx Tablets 150mg 180ta 1 tab qd Papito / bonny Wolfe, 06/13 M.DDuncan Amitriptyline HCL Hx Tablets 25mg 1 po qhs Unknown /0000 - 11/06 Omeprazole Hx Capsules 40mg 1 po qd Unknown /0000 DR - 01/08 Vitamin D Hx Capsules 50,000 1 weekly Unknown /0000 - 01/08 Cyclobenzaprine Hx Tablets 10mg prn Unknown HCL /0000 - 01/08 Vesicare Hx Tablets 5mg 90tab 1 po qd Unknown / s - 01/08 Guaifenesin Hx Tablet 1 po qd Unknown /0000 - 01/08 Maxalt-LEGAL INTERN Hx Tablets 5mg 12tab 1 tablet po Laface, /0000 Dispers s daily as MD Odessa - needed 02/28 Onset headache(sa mples given per ) Rizatriptan Hx Tablets 10mg 1 tablet on Laface, Benzoate /0000 Dispers daily as MD Odessa - needed 05/14 Hydrocodone-Acetam Hx Tablets 5-325mg 1 po tablet Unknown inophen /0000 po as - needed 11/06 Butalbital/Acetami Hx Tablets 50-325-40 prn Unknown nophen/Caffeine /0000 mg - 02/28 Valacyclovir HCL Hx Tablets 500mg take 1 Unknown /0000 tablet by - mouth twice 09/29 a day for days For Outbreaks; take...as needed Vitamin D3 Hx Capsules 2000Unit 30cap 1 cap po Unknown /0000 s twice per - week 11/[address] 20mg 90cap 1 by mouth Unknown /0000 Part s every day - 09/29 Irbesartan Hx Tablets 75mg 2 by mouth Unknown /0000 every day @ - hs 05/24 Ketorolac Hx Solution 0.4% Unknown Tromethamine /0000 - 10/31 Pantoprazole Hx Tablets 40mg 1 by mouth Unknown Sodium /0000 DR every day - 06/09 Vitamin D3 Hx Tablets 5000Units 1 by mouth Unknown /0000 every day - 05/14 Colace Hx Capsules 100mg 1 by mouth Unknown /0000 twice daily - as needed 05/14 Robaxin Hx Tablets 500mg Unknown / - 05/14 Nitrofurantoin Hx Capsules 100mg 1 by mouth Unknown Monohyd Macro /0000 twice a day - x 7 days 05/14 Methocarbamol Hx Tablets 500mg 1 by mouth Unknown /0000 three time - daily 06/09 Vital Signs Date Vital Result Comment 08/01/2018 Height 61 inches 5'1" Weight 143.00 lb With Shoes Heart Rate 71 /min BP Systolic Sitting 160 mmHg BP Diastolic Sitting 80 mmHg BP Systolic Standing 162 mmHg BP Diastolic Standing 80 mmHg Respiratory Rate 16 /min BMI (Body Mass Index) 27.0 kg/m2 Ejection Fraction 55-60% 06/22/2018 Height 61 inches 5'1" Weight 141.00 lb Heart Rate 76 /min BP Systolic Sitting 124 mmHg BP Diastolic Sitting 62 mmHg BP Systolic Standing 130 mmHg BP Diastolic Standing 62 mmHg Respiratory Rate 16 /min BMI (Body Mass Index) 26.6 kg/m2 Ejection Fraction 55-60% 05/16/2018 echo 06/09/2018 Height 61 inches 5'1" Weight 139.00 lb pt stated Heart Rate 76 /min BP Systolic 110 mmHg manual cuff right arm sitting BP Diastolic 52 mmHg manual cuff right arm sitting BP Systolic Sitting 116 mmHg manual cuff left arm sitting BP Diastolic Sitting 58 mmHg manual cuff left arm sitting BP Systolic Standing 116 mmHg standing manual cuff left arm BP Diastolic Standing 60 mmHg standing manual cuff left arm BP Systolic Lying Down 120 mmHg pts home unit standing left arm pulse=71 BP Diastolic Lying Down 62 mmHg pts home unit standing left arm pulse=71 BMI (Body Mass Index) 26.3 kg/m2 05/15/2018 Height 61 inches 5'1" Weight 140.00 lb w/shoes Heart Rate 62 /min BP Systolic Sitting 160 mmHg LA reg cuff BP Diastolic Sitting 70 mmHg LA reg cuff BMI (Body Mass Index) 26.4 kg/m2 Ejection Fraction 65% Echo 05/01/17 02/13/2018 Height 61 inches 5'1" Weight 140.38 lb Heart Rate 80 /min BP Systolic Sitting 134 mmHg BP Diastolic Sitting 74 mmHg Respiratory Rate 14 /min Pain Level 8 BMI (Body Mass Index) 26.5 kg/m2 12/08/2017 Height 61 inches 5'1" Weight 151.00 lb Heart Rate 64 /min BP Systolic Sitting 144 mmHg BP Diastolic Sitting 70 mmHg Respiratory Rate 14 /min Pain Level 2 BMI (Body Mass Index) 28.5 kg/m2 09/02/2017 Weight 154.25 lb Heart Rate 76 /min BP Systolic Sitting 122 mmHg BP Diastolic Sitting 62 mmHg O2 % BldC Oximetry 97 % 06/28/2017 Height 61 inches 5'1" Weight 154.00 lb Heart Rate 80 /min BP Systolic Sitting 150 mmHg BP Diastolic Sitting 80 mmHg Respiratory Rate 14 /min Pain Level 5 BMI (Body Mass Index) 29.1 kg/m2 04/28/2017 Height 61 inches 5'1" Weight 156.12 lb Heart Rate 72 /min BP Systolic Sitting 144 mmHg BP Diastolic Sitting 85 mmHg Respiratory Rate 14 /min Pain Level 5 BMI (Body Mass Index) 29.5 kg/m2 01/27/2017 Height 61 inches 5'1" Heart Rate 69 /min BP Systolic Sitting 143 mmHg BP Diastolic Sitting 80 mmHg Respiratory Rate 14 /min Body Temperature 97.1 F Pain Level 6 11/29/2016 Height 61 inches 5'1" Heart Rate 68 /min BP Systolic Sitting 140 mmHg BP Diastolic Sitting 80 mmHg Respiratory Rate 14 /min Body Temperature 97.3 F Pain Level 10 11/19/2016 Height 61 inches 5'1" Weight 155.00 lb with shoes Heart Rate 66 /min BP Systolic Sitting 122 mmHg Ra lrg cuff BP Diastolic Sitting 72 mmHg Ra lrg cuff BP Systolic Standing 116 mmHg Ra lrg cuff BP Diastolic Standing 78 mmHg Ra lrg cuff BMI (Body Mass Index) 29.3 kg/m2 Ejection Fraction 65% echo 05/01/13 10/07/2016 Height 61 inches 5'1" Weight 161.00 lb Heart Rate 68 /min BP Systolic Sitting 144 mmHg BP Diastolic Sitting 90 mmHg Respiratory Rate 14 /min Body Temperature 97.1 F Pain Level 3 BMI (Body Mass Index) 30.4 kg/m2 09/29/2016 Height 61 inches 5'1" Weight 156.00 lb Heart Rate 72 /min BP Systolic Sitting 130 mmHg BP Diastolic Sitting 70 mmHg Respiratory Rate 14 /min Body Temperature 96.7 F Pain Level 3 BMI (Body Mass Index) 29.5 kg/m2 11/06/2014 Height 61 inches 5'1" Weight 145.00 lb Heart Rate 94 /min BP Systolic Sitting 140 mmHg BP Diastolic Sitting 86 mmHg Pain Level 0 BMI (Body Mass Index) 27.4 kg/m2 05/14/2014 Height 61 inches 5'1" Weight 143.00 lb Heart Rate 63 /min BP Systolic 150 mmHg BP Diastolic 80 mmHg BMI (Body Mass Index) 27.0 kg/m2 04/08/2014 Height 61 inches Weight 143.00 lb Heart Rate 64 /min BP Systolic 145 mmHg BP Diastolic 76 mmHg BMI (Body Mass Index) 27.0 kg/m2 03/18/2014 Height 61 inches 5'1" Weight 143.00 lb Heart Rate 75 /min BP Systolic 159 mmHg BP Diastolic 89 mmHg BMI (Body Mass Index) 27.0 kg/m2 03/01/2014 Height 61 inches 5'1" Weight 146.00 lb without shoes Heart Rate 60 /min BP Systolic Sitting 128 mmHg LA reg cuff BP Diastolic Sitting 70 mmHg LA reg cuff BP Systolic Standing 122 mmHg LA reg cuff BP Diastolic Standing 72 mmHg LA reg cuff Respiratory Rate 16 /min BMI (Body Mass Index) 27.6 kg/m2 02/06/2014 Height 61 inches 5'1" Weight 142.00 lb Heart Rate 68 /min BMI (Body Mass Index) 26.8 kg/m2 01/08/2014 Height 61 inches 5'1" Weight 142.00 lb BMI (Body Mass Index) 26.8 kg/m2 08/31/2013 Height 61.5 inches 5'1.50" Weight 153.00 lb Heart Rate 80 /min BP Systolic Sitting 126 mmHg Ra reg cuff BP Diastolic Sitting 76 mmHg Ra reg cuff BP Systolic Standing 130 mmHg Ra BP Diastolic Standing 84 mmHg Ra Respiratory Rate 16 /min BMI (Body Mass Index) 28.4 kg/m2 08/15/2013 Height 61.5 inches 5'1.50" Weight 152.00 lb Heart Rate 88 /min BP Systolic 120 mmHg Ra reg cuff BP Diastolic 80 mmHg Ra reg cuff BP Systolic Sitting 118 mmHg LA reg cuff BP Diastolic Sitting 78 mmHg LA reg cuff BP Systolic Standing 116 mmHg LA BP Diastolic Standing 82 mmHg LA Respiratory Rate 16 /min BMI (Body Mass Index) 28.3 kg/m2 Results Description No Information Procedures Date CPT Code Description Status 05/16/2018 58260 ECHO Transthoracic, Real-Time 2D With Doppler And Color Completed Flow 05/16/2018 39649 ECHO Transthoracic, Real-Time 2D With Doppler And Color Completed Flow 05/15/2018 71781 EKG Tracing & Interpretation Completed 11/19/2016 56290 EKG Tracing & Interpretation Completed 06/22/2016 Mammogram Completed 03/28/2014 65088 Carpal Tunnel Release Completed 03/28/2014 40386 Carpal Tunnel Release Completed 01/08/2014 58298 Rad Exam; Wrist, Comp, Min 3 Views Completed 08/22/2013 63457 ECHO Stress Test Incl Perf Contiuous ekg Monitoring Completed W/Phys Superv 08/15/2013 25730 EKG Tracing & Interpretation Completed 05/01/2013 56613 ECHO Transthoracic, Real-Time 2D With Doppler And Color Completed Flow Encounters Type Date Location Provider CPT E/M Dx Office Visit 06/22/2018 9:00a [facility] Jordyn Davey, [place] [address] I10 Griddle Attendant I34.2 R42 Office Visit 06/09/2018 2:00p [facility] [place] [address] I10 Office Visit 05/15/2018 9:40a [facility] Papito Wolfe M.D. 18024 G62.9 I10 E78.00 R01.1 R94.31 Office Visit 02/13/2018 3:20p [facility] [place], 88319 G62.9 Irina Higgins M54.5 M47.812 G25.81 Office Visit 12/08/2017 8:40a [facility] [place], 48982 G62.9 Irina Higgins M54.5 M47.812 M65.30 Office Visit 11/14/2017 11:13a [facility]re Lee, 53914 R51 Ronaldo H53.2 R42 I10 Office Visit 09/02/2017 9:20a [facility] [place], 37797 G62.9 Irina Higgins R25.2 M54.5 M51.36 L30.9 M65.30 Office Visit 06/28/2017 8:20a [facility] [place], 13625 M54.5 Irina Higgins R25.2 G62.9 M47.812 M65.331 Office Visit 05/20/2017 8:20a [facility] [place] [address] L23.7 Office Visit 04/28/2017 2:40p [facility] Neri Bhatt M.D. 15001 R20.8 Of [facility] R25.2 M54.5 M47.812 G62.9 M65.331 Office Visit 03/21/2017 4:20p [facility] [place] [address] L57.0 L82.1 L21.8 Office Visit 01/27/2017 4:00p [facility] Neri Bhatt 54437 M51.36 Of Irina Higgins R20.8 M54.5 G25.81 M47.812 G62.9 Office Visit 11/29/2016 2:20p [facility] Neri Bhatt 80384 M51.36 Of Irina Higgins R20.8 M54.5 Office Visit 11/19/2016 8:45a [facility] Bryan Tubbs 92941 I10 Ronaldo R94.31 Z01.810 Office Visit 10/07/2016 9:00a [facility] Neri Bhatt 23381 G25.81 Of Irina Higgins M47.812 M47.816 M79.7 Office Visit 09/29/2016 9:00a [facility] Bhatt 24454 R70.0 Irina Higgins M79.1 G25.81 M54.5 M54.6 R10.12 Office Visit 11/06/2014 2:20p [facility] Howie Chery, 99533 729.1 Of Irina Higgins Office Visit 03/01/2014 10:30a [facility] Bryan Tubbs 41663 401.1 Irina Higgins Office Visit 02/06/2014 8:30a [facility] 95380 354.0 Chavo Ziegler M.D. Office Visit 01/08/2014 8:30a [facility] 38704 354.0 Chavo Ziegler M.D. 354.2 718.83 Office Visit 08/31/2013 2:45p [facility] Bryan Tubbs 90910 401.1 Irina Higgins 272.2 Office Visit 08/15/2013 1:00p [facility] Bryan Tubbs, 93673 794.39 Irina Higgins Office Visit 02/23/2012 11:00a [facility] 25543 727.04 Chavo Ziegler M.D. Office Visit 07/02/2008 1:20p [facility] Howie Chery, 25048 847.0 Of Irina Higgins Office Visit 05/30/2008 4:00p [facility] Howie Chery, 33437 847.0 Of Irina Higgins Plan of Care 08/01/2018 - Jessica Mclaughlin [id number] Essential (primary) hypertensionFollow up:f/u as scheduled in [address] Solares51 WsfvcpexZ38.2 Nonrheumatic mitral ( valve) hwiwrsktC75.5 Hyperlipidemia, unspecified
[2018-08-22 19:47] VITALS: BP 161/81
--- NOTE | 2018-08-22 20:55 | UC ---
Throat Pain/Nasal Nate HPI - HPI Summary HPI Summary: 63-year-old female presents with swollen gland the left side of her face. States started this morning while eating breakfast. The swelling resolved during the day and then began again tonight while she was eating dinner. States the swelling is once again started to resolve. She denies fever, chills , sore throat, dysphagia, or difficulty breathing. 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 Onset/Duration: Sudden Onset Severity: Mild Pain Intensity: 3 Cough: None Associated Signs & Symptoms: Negative: Dysphagia, FB Sensation, Drooling, Wheezing, Hoarseness, Sinus Discomfort, Nasal Discharge, Fever, Vomiting, Rash - Allergies/Home Medications Allergies/Adverse Reactions: Allergies Allergy/AdvReac Type Severity Reaction Status Date / Time Adhesive Tape Allergy Rash Verified 11/14/17 06:10 diphenhydramine Allergy See Comment Verified 08/22/18 19:49 [From Benadryl] Penicillins Allergy Unknown Verified 08/22/18 19:49 Reaction Details FLAX SEED Allergy Rash Uncoded 11/14/17 06:10 PMH/Surg Hx/FS Hx/Imm Hx Cardiovascular History: Hypertension Respiratory History: Asthma GI/ History: Gastroesophageal Reflux Other Neurological History: Peripheral neuropathy - Surgical History Surgical History: Yes Surgery Procedure, Year, and Place: hysterectomy. x 4. tonsills. lumpectomy bilat shoulder - 2 SURGERIES. COLONOSCOPY- [place] 2015 [place] - Family History Family History: Noncontributory - Social History Occupation: Retired Lives: With Family Alcohol Use: None Substance Use Type: None Smoking Status (MU): Former Smoker Type: Cigarettes Amount Used/How Often: 1/2 PPDX 4 YEARS Have You Smoked in the Last Year: No When Did the Patient Quit Smoking/Using Tobacco: 1973 - Immunization History Most Recent Tetanus Shot: Jul 2015 Review of Systems Constitutional: Negative Skin: Negative ENT: Negative Respiratory: Negative Cardiovascular: Negative Is Patient Immunocompromised?: No All Other Systems Reviewed And Are Negative: Yes Physical Exam Triage Information Reviewed: Yes Appearance: Well-Appearing, No Pain Distress, Well-Nourished Vital Signs: Initial Vital Signs Temp 98.0 F 08/22/18 19:42 Pulse 68 10/23/18 19:42 Resp 16 08/22/18 19:42 BP 161/81 08/22/18 19:42 Pulse Ox 100 08/22/18 19:42 Eyes: Positive: Conjunctiva Clear. Negative: Discharge ENT: Positive: Uvula midline, Other - Mild tenderness and swelling of the left submandibular salivary gland. Negative: Pharyngeal erythema, Nasal congestion, Nasal drainage, Tonsillar swelling, Tonsillar exudate Neck: Positive: Supple, Nontender, No Lymphadenopathy Respiratory: Positive: Lungs clear, Normal breath sounds, No respiratory distress Cardiovascular: Positive: RRR, No Murmur Neurological: Positive: Alert Skin Exam: Normal Throat Pain/Nasal Course/Dx - Course Course Of Treatment: 63 year old female with onset swelling to the left submandibular salivary gland with eating. Afebrile. History and exam are consistent with sialendentitis likely from a stone. Receommend conservative treatment with heat, gentle massage and milking of duct, sour candies, and hydration. She is to follow up with PCP if symptoms persist. Warning symptoms were reviewed with patient. Verbalizes understanding and agrees with POC. - Differential Dx/Diagnosis Provider Diagnoses: sialadentitis left submandibular salivary gland Discharge - Sign-Out/Discharge Documenting (check all that apply): Patient Departure All imaging exams completed and their final reports reviewed: No Studies - Discharge Plan Condition: Stable Disposition: HOME Patient Education Materials: Sialoadenitis (ED) Referrals: Odessa Odom MD [Primary Care Provider] - 5 Days (If no improvement in symptoms.) Additional Instructions: Your symptoms are from a swollen salivary gland. The most likely cause is a small stone in the salivary duct that is preventing the flow of saliva out of the gland. This is generally not harmful and will resolve on its own with some conservative treatment in a few days. Use a warm compress for 15-20 minutes at least 4 times a day to the affected area. Be sure to drink plenty of fluids and keep your mouth moist. Use sour candies throughout the day. Gently massage the salivary gland and then "milk"the salivary ducts as was demonstrated to you. Follow-up with your primary care provider in 5 days if symptoms persist. Seek immediate medical attention if you develop fever greater than 100.5 F, have persistent swelling, difficulty swallowing, difficulty breathing, or any worsening of symptoms. - Billing Disposition and Condition Condition: STABLE Disposition: Home
== END 2018-08-22 21:00 | disposition home or self-care (01) ==
LOC: UCEAST 19:15
DX: K11.20 Sialoadenitis, unspecified (principal); I10 Essential (primary) hypertension; J45.909 Unspecified asthma, uncomplicated; Z88.0 Allergy status to penicillin; Z88.8 Allergy status to other drugs, medicaments and biological substances; Z91.018 Allergy to other foods; Z91.048 Other nonmedicinal substance allergy status; Z87.891 Personal history of nicotine dependence
CPT/HCPCS: 99211; G0463

== ENCOUNTER 2019-09-18 08:41 | Day surgery (SDC) | payer MEDICARE, BC, OTHER ==
--- NOTE | 2019-09-06 16:39 | HP ---
PREOPERATIVE HISTORY AND PHYSICAL: DATE OF ADMISSION/SURGERY: 09/18/19 DATE OF OFFICE VISIT/ENCOUNTER: 09/05/19 ATTENDING SURGEON: Virgie Suazo MD * (DICTATED BY JULIET MARIA) PROCEDURE: Cyst excision of right small finger, trigger release of right long finger, foreign body removal of right thumb. HISTORY OF PRESENT ILLNESS: This is a 64-year-old female who has 3 complaints with her right hand, one is of a mass on the dorsal radial aspect of her little finger at the proximal phalanx level, this has been present for a few months and has gradually gotten bigger. It is not painful at all. There was no injury associated with it. She has no numbness or tingling associated with it. The second complaint is of triggering and locking of the right middle finger for the past year. She has not had any treatment for that and there was no injury. Additionally, she suffered a puncture wound with a splinter in her right thumb several weeks ago and she feels as though there is still a portion of that in her thumb and it is quite tender, even though it has healed over. She is interested in pursuing surgical intervention for all 3 of these problems. PAST MEDICAL HISTORY: 1. Hypertension. 2. Hypercholesterolemia. 3. History of migraine headaches. 4. Asthma. 5. Heart murmur. 6. Back pain. 7. Polyneuropathy. PAST SURGICAL HISTORY: 1. x4. 2. Tonsillectomy. 3. Hysterectomy. 4. Breast reduction. 5. Right carpal tunnel release. 6. Rectal sphincterotomy. CURRENT MEDICATIONS: 1. Albuterol inhaler as needed. 2. Amlodipine besylate 2.5 mg twice a day. 3. Aspirin 81 mg daily. 4. Gabapentin 300 mg 2 tabs in the morning, 1 at noon and 2 in the evening. 5. Irbesartan 75 mg twice a day. 6. Linzess 145 mcg daily. 7. Lipitor 20 mg daily. 8. Melatonin 3 mg daily p.r.n. 9. Myrbetriq 50 mg daily. 10. Naproxen sodium ER 500 mg p.r.n. 11. Wellman 5/325 one to two tabs q.4 to 6 hours as needed for back pain. 12. Oxcarbazepine 150 mg twice a day. 13. Pantoprazole sodium 40 mg twice weekly. 14. Rizatriptan benzoate 5 mg 1 tab at onset of migraines, repeat over 2 hours max. 15. Valacyclovir HCl 500 mg 1 tab daily. ALLERGIES: BENADRYL causes increased blood pressure, NALTREXONE causes sleeplessness, PENICILLIN causes hives, and she also has a questionable allergy to tape. FAMILY MEDICAL HISTORY: Aortic aneurysm, lung aneurysm, breast cancer, stroke, lymphoma, and Avery's thyroiditis. 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 She is a former smoker from age 15 to 19, but has not smoked since. She denies recreational drug use and does not drink alcohol. REVIEW OF SYSTEMS: Negative for general, cephalic, cardiovascular, respiratory , GI, , other musculoskeletal, integumentary, endocrine, neurologic, and hematologic symptoms. Infectious Disease: Negative for MRSA, hepatitis C, HIV. PHYSICAL EXAMINATION GENERAL: A well-developed, well-nourished 64-year-old female, in no acute distress. VITAL SIGNS: Height 5 feet 1 inch, weight 139 pounds. Pulse rate 72, blood pressure 138/72. HEENT: Normocephalic, atraumatic. Pupils are equal, round, and reactive to light and accommodation. Extraocular movements are intact. Throat is clear. NECK: Supple. No palpable lymph nodes. PULMONARY: Lungs are clear to auscultation bilaterally. No wheezes, rales, or rhonchi. CARDIOVASCULAR: Regular rate and rhythm. S1, S2. There is a murmur detected on auscultation. ABDOMEN: Positive bowel sounds. Soft, nontender. NEUROLOGICAL: Alert and oriented x3. Cranial nerves II through XII are intact. Sensation is intact to light touch. MUSCULOSKELETAL: On exam of her right hand, she has tenderness at the A1 jolanta at the middle finger with locking in flexion. She has a 1 cm diameter cystic mass at the dorsal radial aspect of the little finger, minimally tender to palpation. It does not limit her range of motion. She has a tiny healed puncture wound on the pad of her right thumb which is very tender to palpation. ASSESSMENT: 1. Right thumb foreign body. 2. Right middle finger trigger finger. 3. Mass on right small finger. PLAN: The patient is scheduled to undergo a cyst excision of right small finger , trigger release of right long finger, foreign body removal of right thumb with Dr. Suazo on 09/18/19. She will return to the office 10 days postop for followup and suture removal. She has a prescription for Wellman from another prescriber that she will plan on using for pain management after surgery. JULIET MARIA [id number]/[facility] #: [id number] BTETYE
[~2019-09-18 08:41] MED LIST: Buffered Lidocaine 1% SYRIN* 1 ML/SYRINGE INTRADERM ONE; Lactated Ringers 1000 ML Bag* 1,000 ML IV SCH
[2019-09-18] MEDS ORDERED: fentaNYL* 50 MCG/ML 2 ML VIAL (100 MCG VIAL) ONE (09:45)
[2019-09-18] MEDS ORDERED: Midazolam* 1 MG/ML 5 ML VIAL (5 MG) ONE (09:45)
[2019-09-18] MEDS ORDERED: Lidocaine 1% INJ* 10 MG/ML 30 ML SDV ONE (10:17)
[2019-09-18] MEDS ORDERED: Propofol* 10 MG/ML 20 ML BTL ONE (10:37)
[2019-09-18 11:36] VITALS: BP 141/66
--- NOTE | 2019-09-18 19:58 | OP ---
DATE OF OPERATION: 09/18/19 - [facility] DATE OF : 51 SURGEON: Virgie Suazo MD. RETAIL ACCOUNT EXECUTIVE: JULIET Del Cid. ANESTHESIA: Local MAC. PRE-OP DIAGNOSES: 1. Right small finger mass. 2. Right thumb foreign body. 3. Right long trigger finger. POST-OP DIAGNOSES: 1. Right small finger mass. 2. Right thumb foreign body. 3. Right long trigger finger. OPERATIVE PROCEDURES: 1. Right small finger mass excision. 2. Right middle finger trigger release. 3. Right thumb foreign body removal. ESTIMATED BLOOD LOSS: Zero. TOURNIQUET TIME: About 15 minutes. INDICATION FOR PROCEDURE: Rachelle is a 64-year-old female who has a right small finger mass, a possible foreign body in the right thumb with a small skin lesion , and a trigger finger of the right middle finger. She presents for operative treatment of all of the above. DESCRIPTION OF PROCEDURE: The patient was brought to the operating room and was given a sedation anesthetic and a local infiltration of a total of 10 cc of 1% plain lidocaine in the right hand. The skin of her right hand and forearm was prepped and draped in the usual sterile fashion. The hand and forearm were exsanguinated and the tourniquet elevated to 250 mmHg. An elliptical incision was made around the tiny thumb lesion. The full-thickness skin was sent for pathology. The wound was explored for a foreign body, but none was found. It was presumed to be in the excision biopsy. The wound was irrigated and the skin edges reapproximated with 4-0 nylon suture. Next, a transverse incision was made centered over the A1 jolanta of the middle finger. We dissected through the subcutaneous tissue down to the A1 jolanta. The digital neurovascular bundles were retracted by the surgical manager, Brian Rose. The A1 jolanta was incised longitudinally, completely releasing the flexor tendons, which were in good condition. The wound was irrigated and the skin edges reapproximated with 4-0 nylon suture. Next, a longitudinal incision was made overlying the small finger mass. We dissected bluntly through the subcutaneous tissue. The mass appeared to be a ganglion cyst emanating from the extensor tendon. It was removed and sent for pathology. The wound was irrigated and the skin edges reapproximated with 4-0 nylon suture. The wounds were all dressed with Xeroform, 4x4, Webril, and an Tone wrap. The patient tolerated the procedure well and was brought to the recovery room in good condition. [id number]/[facility] #: [id number] BETTYE
== END 2019-09-18 12:00 | disposition home or self-care (01) ==
LOC: OREAST 08:41
PROVIDERS: ATTEND Orthopaedic Surgery
DX: M67.441 Ganglion, right hand (principal); L90.5 Scar conditions and fibrosis of skin; M65.331 Trigger finger, right middle finger; I10 Essential (primary) hypertension; E78.5 Hyperlipidemia, unspecified; J45.909 Unspecified asthma, uncomplicated; K21.9 Gastro-esophageal reflux disease without esophagitis; G62.9 Polyneuropathy, unspecified
CPT/HCPCS: 88304; J2250; J2704; J3010

== ENCOUNTER 2020-02-13 13:48 | Emergency (ER) | payer MEDICARE, BC, OTHER ==
--- OUTSIDE RECORDS SUMMARY | 2020-02-13 13:57 | XMS REPORT | Continuity of Care Document ---
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 Onset: studies Benign essential hypertension Bryan Tubbs M.D. Onset: 08/31/2013 Mixed hyperlipidemia Bryan Tubbs M.D. Onset: 08/31/2013 Primary fibromyalgia syndrome Howie Chery M.D. Onset: 11/06/2014 Essential hypertension Bryan Tubbs M.D. Onset: 11/19/2016 Insomnia Onset: 04/25/2019 Lipoma of skin Onset: 01/25/2018 Restless legs Onset: 12/14/2017 Polyneuropathy Onset: 05/12/2017 Mild intermittent asthma Onset: 11/16/2016 Hemangioma of liver Onset: 09/08/2016 Herpes zoster involving sacral dermatome Onset: 08/30/2016 Hyperparathyroidism Onset: 06/21/2016 Aspiration pneumonia Onset: 05/12/2016 Blepharitis Onset: 03/10/2016 Urge incontinence of urine Onset: 02/17/2016 Tinnitus Onset: 01/08/2015 Muscle fasciculation Onset: 10/31/2014 History of polyp of colon Onset: 07/30/2014 Migraine with aura Onset: 02/06/2014 Cramp in lower limb Onset: 11/12/2013 Fibromyositis Onset: 11/12/2013 Chronic low back pain Onset: 11/12/2013 Simple renal cyst Onset: 11/12/2013 Irritable bowel syndrome characterized by Onset: 11/12/2013 constipation Vitamin D deficiency Onset: 11/12/2013 Asthma Onset: 11/12/2013 Hyperlipidemia Onset: 11/12/2013 Overweight Onset: 11/12/2013 Carpal tunnel syndrome Onset: 10/31/2013 Vitreous detachment Onset: 10/31/2011 Chronic herpes simplex Onset: 10/31/2007 Bicuspid aortic valve Onset: [birth year]31/1954 Social History Type Date Description Comments Sex Unknown Tobacco Use Start: Unknown End: Former Cigarette Smoker Unknown Smoking Status Reviewed: 11/01/19 Former Cigarette Smoker ETOH Use Denies alcohol use Tobacco Use Start: Unknown End: Patient is a former High school Unknown smoker Recreational Drug Use Denies Drug Use Exercise Type/Frequency Exercises sporadically biking when she can Allergies, Adverse Reactions, Alerts Active Allergies Reaction Severity Comments Date Penicillin took it daily for 9 years and does not 08/15/2013 want to reintroduce Flax rash 08/15/2013 Tape blisters (surgical) 01/08/2014 Benadryl increased BP 09/29/2016 Naltrexone insomnia, not allergy 09/29/2016 Flaxseed Extract Rash Moderate 10/31/2019 Cymbalta Other Moderate 10/31/2019 Medications Active Medications SIG Qnty Indications Ordering Date Provider Hydrocodone 1 tab by mouth 15tabs Odessa Rick, 09/18/2019 Bitartrate/Acetaminop every 6 hours as MD hen needed pain 5-325mg Tablets Lipitor 1 tab by mouth 90tabs Jordyn Davey, 12/11/2018 20mg Tablets every at night N.P. Amlodipine Besylate 1 po bid 270tabs I10 Papito Callaway 12/05/2018 Ronaldo Wolfe 2.5mg Tablets Irbesartan by mouth two times 90tabs Papito Callaway 06/13/2018 75mg Tablets daily Ronaldo Wolfe Gabapentin 2 po bid, 450caps G25.81 Neri Bhatt, 08/01/2017 300mg sometimes takes an M.D. Capsules additional capsule qd prn Albuterol inhaler as needed Unknown Linzess by mouth every day Unknown 145mcg Capsules as needed Melatonin 1 by mouth every Unknown 3mg Capsules night at bedtime as needed Myrbetriq 1 by mouth qod Unknown 50mg Tablets ER 24HR Valacyclovir HCL 1 by mouth every 90tabs Odessanando Rick, 500mg day Tablets Oxcarbazepine 1 by mouth twice a Unknown 150mg day Tablets Aspirin Ec 1 by mouth every Unknown 81mg Tablets day DR Wick Benzoate 1 by mouth at 12tabs Odessanando Rick, onset of migraine, 5mg Tablets may repeat after 2 hours max 2/day max 2 days/week Pantoprazole Sodium 1 po qod Unknown 40mg Tablets Medications Administered in Office Medication SIG Qnty Indications Ordering Provider Date Pneumococcal,Unspecified Odessa Rick MD 01/30/2020 Injection Toradol Injection 15MG Odessa Rick MD 01/30/2020 Injection [facility] Virgie Fagan M.D. 12/15/2019 administered Injection Inj, Regadenoson, 0.1 MG Ravi Juarez, DO [facility] 03/19/2019 Injection Technetium TC 99M Ravi Juarez, DO [facility] 03/19/2019 Tetrofosmin, Per Unit Dose Up To 40 Millicuries Injection Technetium TC 99M Ravi Juarez, DO [facility] 03/19/2019 Tetrofosmin, Per Unit Dose Up To 40 Millicuries Injection Immunizations CPT Code Status Date Vaccine Lot # [id number] Given 01/23/2019 Pneumococcal Conjugate Vaccine 13 Valent For Intramuscular Use 76926 Given 07/21/2015 Zoster (Zostavax) 66034 Given 07/21/2015 Tdap - Tetanus/Diptheria/Acellular Pertussis 42324 Given Unknown Zoster (Shingles) Vaccine (HZV), Recombinant, Subunit, Adjuvanted 24973 Given Unknown Zoster (Zostavax) Vital Signs Date Vital Result Comment 01/30/2020 2:05pm Height 61.50 inches 5'1.50" Weight 142.00 lb BP Systolic Sitting 152 mmHg BP Diastolic Sitting 60 mmHg Body Temperature 97.4 F BMI (Body Mass Index) 26.4 kg/m2 01/29/2020 11:38am Height 61.25 inches 5'1.25" Weight 139.00 lb BMI (Body Mass Index) 26.0 kg/m2 Results Test Acquired Date Facility Test Result H/L Range Note Comp Metabolic 01/28/2020 [facility] Sodium 137 mmol/L Normal 135-[address] [place] [address] [phone] Potassium 4.5 mmol/L Normal 3.5-5.0 Chloride 102 mmol/L Normal 101-111 Co2 Carbon Dioxide 31 mmol/L Normal 22-32 Anion Gap 4 mmol/L Normal 2-11 Glucose 85 mg/dL Normal 70-100 Blood Urea Nitrogen 11 mg/dL Normal 6-24 Creatinine 0.53 mg/dL Normal 0.51-0.95 BUN/Creatinine Ratio 20.8 High 8-20 Calcium 9.9 mg/dL Normal 8.6-10.3 Total Protein 6.3 g/dL Low 6.4-8.9 Albumin 3.9 g/dL Normal 3.2-5.2 Globulin 2.4 g/dL Normal 2-4 Albumin/Globulin Ratio 1.6 Normal 1-3 Total Bilirubin 0.40 mg/dL Normal 0.2-1.0 Alkaline Phosphatase 149 U/L High 34-104 Alt 18 U/L Normal 7-52 Ast 17 U/L Normal 13-39 Egfr Non- 115.1 >60 Egfr 139.2 >60 1 CBC Auto 01/28/2020 [facility] White Blood 5.1 10^3/uL Normal 3.5-10.[address] [place] [address] [phone] Red Blood Count 4.08 10^6/uL Normal 3.70-4.87 Hemoglobin 13.2 g/dL Normal 12.0-16.0 Hematocrit 39 % Normal 35-47 Mean Corpuscular Volume 95 fL Normal 80-97 Mean Corpuscular Hemoglobin 32 pg High 27-31 Mean Corpuscular HGB Conc 34 g/dL Normal 31-36 Red Cell Distribution Width 13 % Normal 10-15 Platelet Count 246 10^3/uL Normal 150-450 Mean Platelet Volume 7.5 fL Normal 7.4-10.4 Abs Neutrophils 2.8 10^3/uL Normal 1.5-7.7 Abs Lymphocytes 1.6 10^3/uL Normal 1.0-4.8 Abs Monocytes 0.4 10^3/uL Normal 0-0.8 Abs Eosinophils 0.2 10^3/uL Normal 0-0.6 Abs Basophils 0.1 10^3/uL Normal 0-0.2 Abs Nucleated RBC 0.0 10^3/uL Granulocyte % 55.6 % Lymphocyte % 31.0 % Monocyte % 8.1 % Eosinophil % 3.9 % Basophil % 1.4 % Nucleated Red Blood Cells % 0.0 Iron & Iron Binding 01/28/2020 [facility] Iron 128 g/dL Normal 50-[address] [place] [address] [phone] Unsaturated Iron Binding < 398 g/dL Total Iron Binding Capacity 413 g/dL Normal 250-450 Transferrin 295 mg/dL Normal 203-362 % Iron Saturation 31 % Normal 15-55 Laboratory test 01/28/2020 [facility] Ferritin 18.7 ng/mL Normal 11-307 finding [address] [place] [address] [phone] Pthi 01/28/2020 [facility] PTH Intact 108.4 pg/mL [place] [address] [place] [address] [phone] Calcium (PTH Intact) 10.0 mg/dL Normal 8.6-10.3 Lipid Profile 01/28/2020 [facility] Triglycerides 121 mg/dL 2 (Trig/Chol/HDL) [address] [place] [address] [phone] Cholesterol 185 mg/dL 3 HDL Cholesterol 77.3 mg/dL 4 LDL Cholesterol 84 mg/dL 5 Laboratory 01/28/2020 [facility] TSH (Thyroid 2.19 Normal 0.34 -5.60 test finding [facility] Stim Horm) mcIU/mL [place], [place] [id number] [phone] Vitamin D Total 25(Oh) 23.0 ng/mL Normal 20-50 6 Vitamin B12 206 pg/mL Normal 180-914 7 Surgical 09/18/2019 [facility] Surgical SEE RESULT [address] [place] [address] [phone] PDFReport SEE IMAGE Pthi 09/12/2019 [facility] PTH Intact 115.8 pg/mL High [address] [place] [address] [phone] Calcium (PTH Intact) 10.2 mg/dL Normal 8.6-10.3 Laboratory test 09/12/2019 [facility] Vitamin D 34.3 ng/mL Normal 20-[address] Total 25(Oh) [place] [address] [phone] 1 Because ethnic data is not always readily available, this report includes an eGFR for both -Americans and non- Americans. The National Kidney Disease Education Program (NKDEP) does not endorse the use of the MDRD equation for patients that are not between the ages of 18 and 70, are , have extremes of body size, muscle mass, or nutritional status, or are non- or non-. According to the National Kidney Foundation, irrespective of diagnosis, the stage of the disease is based on the level of kidney function: Stage Description GFR(mL/min/1.73 m(2)) 1 Kidney damage with normal or decreased GFR 90 2 Kidney damage with mild decrease in GFR 60-89 3 Moderate decrease in GFR 30-59 4 Severe decrease in GFR 15-29 5 Kidney failure <15 (or dialysis) 2 Desirable: <150 Borderline High: 150-199 High: 200-499 Very High: >500 3 Desirable: <200 Borderline High: 200-239 High: >239 4 Low: <40 Desirable: 40-60 High: >60 5 Desirable: <100 Near Optimal: 100-129 Borderline High: 130-159 High: 160-189 Very High: >189 6 Total 25-Hydroxyvitamin D2 and D3 (25-OH-VitD) <10 ng/mL (severe deficiency) 10-19 ng/mL (mild to moderate deficiency) 20-50 ng/mL (optimum levels) 51-80 ng/mL (increased risk of hypercalciuria) >80 ng/mL (toxicity possible) 7 Normal Range 180 to 914 Indeterminate Range 145 to 180 Deficient Range <145 8 SEE RESULT BELOW Name: RACHELLE WARNER : [address]: Virgie Suazo MD Acct: [id number] Unit: [id number] AGE: 64 Location: [facility] Re09/18/19 SEX: F Status: [facility] SPEC: [id number] AMRITA: 09/18/19-[address]: Virgie Suazo MD REQ: [id number] RECD: 09/18/19 STATUS: SOUT _ ORDERED: LEVEL 3/2 FINAL DIAGNOSIS 1. Skin, right thumb, excision: -- Acral skin with reactive fibrosis. -- No foreign objects seen. 2. Right small finger, excision: -- Ganglion cyst. PRE-OPERATIVE DIAGNOSIS 1) Right thumb foreign body, 2) mass on right small finger GROSS DESCRIPTION 1. The specimen is received in formalin labeled, Right Thumb Lesion, and consists of a 0.6 x 0.3 cm blue unoriented volar skin ellipse excised to a depth of 0.3 cm which is inked, bisected and submitted entirely in one cassette. 2. The specimen is received in formalin labeled, Right Small Finger Ganglion, and consists of two jacobs-white irregular wrinkled fibrous tissue fragments admixed with scant fat aggregating 0.9 x 0.7 by up to 0.3 cm. Entirely submitted, one cassette. Signed by and Reported on: Nancy Rivera MD 09/19/19 1509 END OF REPORT DEPARTMENT OF PATHOLOGY, [address] [place] [address] Blake Medina M.D. Director [facility] # [id number] 9 Total 25-Hydroxyvitamin D2 and D3 (25-OH-VitD) <10 ng/mL (severe deficiency) 10-19 ng/mL (mild to moderate deficiency) 20-50 ng/mL (optimum levels) 51-80 ng/mL (increased risk of hypercalciuria) >80 ng/mL (toxicity possible) Procedures Date Code Description Status 01/30/2020 24397 Admin Of Inj Completed 09/26/2019 09946 Destruction Of Benign Lesions Any Method 1-14 lesions Completed 09/18/2019 90401 Excision Tendon Sheath Ganglion /Or Joint Capsule Hand Completed Or Finger 09/18/2019 92185 Excision Tendon Sheath Ganglion /Or Joint Capsule Hand Completed Or Finger 09/18/2019 31044 Trigger Finger Release Incision / Tendon Sheath Completed Incision 09/18/2019 58433 Trigger Finger Release Incision / Tendon Sheath Completed Incision 09/18/2019 12036 Excision, Benign Lesion Scalp Neck Hands Feet Completed Genitalia 0.5 Or Le 09/18/2019 88594 Excision, Benign Lesion Scalp Neck Hands Feet Completed Genitalia 0.5 Or Le 07/19/2019 [id number] Mammogram Completed 06/13/2019 136921379 Bone Mineral Density Test Completed 06/22/2016 [id number] Mammogram Completed 05/06/2016 69314291 Colonoscopy Completed Medical Devices Description No Information Available Encounters Type Date Location Provider Dx Diagnosis Office Visit 09/26/2019 [facility] Dermatology AT João Acuna MD L82.1 Other seborrheic 11:10a Paul keratosis L82.0 Inflamed seborrheic keratosis L53.8 Other specified erythematous conditions Z78.9 Other specified health status Office 09/12/2019 [facility] E21.0 Primary Visit 9:20a and Endocrinology MD Geoff hyperparathyroidism of [facility] M85.80 Oth disrd of bone density and structure, unspecified site K21.0 Gastro-esophageal reflux disease with esophagitis Office Visit 09/05/2019 1:30p [facility] Virgie R22.31 Localized at Clarence Fagan M.D. swelling, mass and lump, right upper limb M65.331 Trigger finger, right middle finger S60.351A Superficial foreign body of right thumb, initial encounter Assessments Date Code Description Provider 01/30/2020 G43.109 Migraine with aura Odessa Rick MD 01/30/2020 I10 Essential hypertension Odessa Rick MD 01/30/2020 E21.0 Primary hyperparathyroidism Odessa Rick MD 01/30/2020 Z23 Pneumococcal vaccination given Odessa Rick MD 01/30/2020 R41.3 Mild memory disturbance Odessa Rick MD 01/30/2020 G43.109 Migraine with aura, not intractable, Odessa Rick MD without status migrainosus 01/30/2020 Z23 Encounter for immunization Odessa Rick MD 01/29/2020 Z00.00 Adult health examination Odessa Rick MD 01/29/2020 I10 Essential hypertension Odessa Rick MD 01/29/2020 G47.00 Insomnia Odessa Rick MD 01/29/2020 G25.81 Restless legs Odessa Rick MD 01/29/2020 E21.3 Hyperparathyroidism Odessa Rick MD 01/29/2020 G43.109 Migraine with aura Odessa Rick MD 01/29/2020 G60.9 Idiopathic peripheral neuropathy Odessa Rick MD 11/01/2019 M65.331 Trigger finger, right middle finger Virgie Fagan M.D. 11/01/2019 Z47.89 Encounter for other orthopedic Virgie Fagan M.D. aftercare 09/26/2019 Z48.89 Encounter for other specified surgical JULIET Russell aftercare 09/26/2019 L82.1 Other seborrheic keratosis João Acuna MD 09/26/2019 L82.0 Inflamed seborrheic keratosis João Acuna MD 09/26/2019 M65.331 Trigger finger, right middle finger JULIET Russell 09/26/2019 L53.8 Other specified erythematous João Acuna MD conditions 09/26/2019 L98.9 Disorder of the skin and subcutaneous JULIET Russell tissue, unspecified 09/26/2019 Z78.9 Other specified health status João Acuna MD 09/26/2019 M67.441 Ganglion, right hand JULIET Russell 09/18/2019 M65.331 Trigger finger, right middle finger Brian Pedro, [facility] 09/18/2019 M65.331 Trigger finger, right middle finger Virgie Fagan M.D. 09/18/2019 L98.9 Disorder of the skin and subcutaneous Brian Pedro, tissue, unspecified [facility] 09/18/2019 L98.9 Disorder of the skin and subcutaneous Virgie Fagan M.D. tissue, unspecified 09/18/2019 M67.441 Ganglion, right hand Brian Pedro, [facility] 09/18/2019 M67.441 Ganglion, right hand Virgie Fagan M.D. 09/12/2019 E21.0 Primary hyperparathyroidism Paulie Tellez MD 09/12/2019 M85.80 Other specified disorders of bone Paulie Tellez MD density and structure, unspecified site 09/12/2019 K21.0 Gastro-esophageal reflux disease with Paulie Tellez MD esophagitis 09/05/2019 R22.31 Localized swelling, mass and lump, Virgie Fagan M.D. right upper limb 09/05/2019 M65.331 Trigger finger, right middle finger Virgie Fagan M.D. 09/05/2019 S60.351A Superficial foreign body of right Virgie Fagan M.D. thumb, initial encounter Plan of Treatment 01/30/2020 - Odessa Rick MDG43.109 Migraine with auraComments:She has been having her typical headaches, she was given Toradol in the office today with much improvement. She was reassessed by nursing staff for 15 minutes after the injection and said she had no pain.Follow up:3 months checkup of all issues including hyperparathyroidism and high blood pressure.I10 Essential hypertensionComments:Slightly elevated today. She will follow up in 3 months to recheck it and call me sooner if it is over 160 systolic on a regular basis.E21.0 Primary hyperparathyroidismComments:Her calcium is within normal limits but her PTH is elevated. I think we should refer her back to surgery for consideration of surgery.Z23 Pneumococcal vaccination jjfogF19.3 Mild memory [id number] Encounter for immunization Functional Status Description No Information Available Mental Status Description No Information Available Referrals Description No Information Available
--- OUTSIDE RECORDS SUMMARY | 2020-02-13 13:57 | XMS REPORT | Continuity of Care Document ---
:1955 External Reference #:[id number] Author Name Neri Lin M.D. Address [address] [place] [address] Care Team Providers Name Role Phone Odessa Rick MD - Family Medicine Care Team Information [facility] Papito Wolfe MD - Cardiovascular Care Team Information [facility] Disease Keith Eaton M.D. - Urology Care Team Information [facility] [phone] Kalli Chambers - Neurology Care Team Information [facility] [phone] Umair Tellez M.D. - Endocrinology, Care Team Information [facility] [phone] Diabetes & Metabolism Problems Active Problems Provider Date Hearing loss Onset: Seasonal allergy Onset: Heart murmur Onset: Essential hypertension Onset: Primary fibromyalgia syndrome Onset: Migraine Onset: Pure hypercholesterolemia Onset: Herpesvirus infection Onset: Blepharoconjunctivitis Henna Zaragoza O.D. Onset: 06/25/2015 Nuclear senile cataract Henna Zaragoza O.D. Onset: 08/30/2015 Vitreous degeneration Henna Zaragoza O.D. Onset: 08/30/2015 Internal hordeolum Darline Stevens O.D. Onset: 03/11/2016 Bursitis of shoulder Onset: Note: Both Restless legs Onset: Migraine with typical aura Neri Lin M.D. Onset: 11/17/2017 Combined form of senile cataract Neri Lin M.D. Onset: 12/21/2018 Social History Type Date Description Comments Sex Unknown ETOH Use Denies alcohol use Tobacco Use Start: Unknown Patient has never smoked Recreational Drug Use Denies Drug Use Smoking Status Reviewed: 12/24/19 Patient has never smoked Allergies, Adverse Reactions, Alerts Active Allergies Reaction Severity Comments Date Penicillins 06/24/2015 Medications Active Medications SIG Qnty Indications Ordering Date Provider Artificial Tears as needed Neri Motley 12/23/2019 1.4% Solution Ronaldo Lin Lid Massage qajose luis Yates 03/11/2016 Louie Zaragoza Irbesartan Unknown 300mg Tablets Hydrochlorothiazide Unknown 25mg Tablets Rizatriptan Benzoate as needed Unknown 5mg Tablets Dispers Valacyclovir HCL Unknown 500mg Tablets Linzess as needed Unknown 145mcg Capsules Myrbetriq Unknown 50mg Tablets ER 24HR Gabapentin 1400 mg daily - Unknown 100mg Capsules 600 mg Am, 200mg @ noon, and 600 mg PM Hydrocodone prn Unknown Bitartrate/Acetaminophen 2.5-325mg Tablets Oxcarbazepine Take 1 Tablet Unknown 300mg Tablets By Mouth Two Times Daily Pantoprazole Sodium Odessa Rick 40mg Tablets DR DAVID Amlodipine Besylate Mauser, 2.5mg Tablets MD Papito Atorvastatin Calcium Mauser, 20mg Tablets MD Papito Proventil HFA Odessa Rick 108(90Base) mcg/Act MD Aerosol Hydrocodone-Acetaminophen Take One Tablet Unknown 5-325mg By Mouth Every Tablets 6 Hours as Needed For Pain - Maximum Daily Dose Of4 Per Day Immunizations Description No Information Available Vital Signs Description No Information Available Results Description No Information Available Procedures Description No Information Available Medical Devices Description No Information Available Encounters Description No Information Available Assessments Date Code Description Provider 12/24/2019 H25.813 Combined forms of age-related cataract, Neri Lin M.D. bilateral 12/24/2019 G43.109 Migraine with aura, not intractable, without Neri Lin M.D. status migrainosus 12/24/2019 H43.813 Vitreous degeneration, bilateral Neri Lin M.D. Plan of Treatment 12/24/2019 - Neri Lin M.D.H25.813 Combined forms of age-related cataract , bilateralComments:Smoking can increase the risk of developing or worsening any eye related disease, as well as affect your overall health. If you are a smoker, we strongly recommend that you quit.If you are not a smoker, we strongly recommend that you do not start. You have been diagnosed with cataracts. If you are happy with your vision as it is now, then we will see you at your next scheduled appointment. If you feel like your vision is getting worse before your scheduled appointment, please call Kayleigh or Damaris .Follow up:1 Year Follow Up You can expect to have your eyes dilated at your next visit. If Dr. Lin orders any additional testing, it may require extra time. We recommend that you bring sunglasses, as dilationdrops often make you light sensitive until they wear off. We always recommend you bring someone to drive you home if you are uncomfortable driving with your eyes dilated. If you have any questions before your next visit, feel free to call our office at .G43.109 Migraine with aura, not intractable, without status [id number] Vitreous degeneration, bilateralComments:You have a Posterior Vitreous Detachment. If you have any changes in your floaters or flashing lights, please contact this office. Functional Status Description No Information Available Mental Status Description No Information Available Referrals Description No Information Available
[2020-02-13 14:06] VITALS: BP 158/72
[2020-02-13] MEDS ORDERED: Famotidine TAB* 20 MG PO ONE (14:21)
[2020-02-13] MEDS ORDERED: Ketorolac INJ* 30 MG/ML 1 ML VIAL IM ONE (14:22)
--- NOTE | 2020-02-13 14:27 | UC ---
Headache HPI - HPI Summary HPI Summary: 65 y/o female presents to the urgent care c/o persistent Migraine WINTERS since January 29/2020. Pt reports she has Hx of Migraine WINTERS which has been managed by her PCP DR Odom. She saw her on the and he gave her a Toradol IM inj and Rx the Rizotriptan PO. She ahs also been taken Tylenol PO Extra-Strength w/ o any improvement. She states pain is on and off, but it seems not to resolve completely. She has been reading a lot and experiencing lack of sleep. She has been Rx new reading glasses she has been able to get due to the COVID 19 stay home order. Pt states WINTERS today is 7/10 diffuse and she experiences an aura w/ mild photophobia yesterday. She has [place] PO at home, but she doesn't want to take it unless WINTERS becomes very severe b/c it makes her constipated. Pt denies dizziness, fever, URI symptoms, SOB, cough, chest pain, weakness, numbness or tingling sensation over her extremities, abdominal pain, N/V/D. Denies Contact someone w/ COVID 19. - History Of Current Complaint Chief Complaint: UCHeadache Stated Complaint: HEADACHE Time Seen by Provider: 02/13/20 14:01 Hx Obtained From: Patient Hx Last Menstrual Period: hyster Onset/Duration: Gradual Onset, Lasting Weeks - 2 weeks on and off migraine WINTERS, Still Present Onset Of Symptoms: Gradual, Still Present Initially Headache Was: Initial Pain Scale(0-10)= - 9, Severe Currently Pain Is: Moderate Pain Intensity: 7 Pain Scale Used: 0-10 Numeric Timing: Intermittent, Lasting: - hrs Character: Migraine Location of Headache: Diffuse Aggravating Factor(s): Bright Lights Allevating Factor(s): Medication - tylenol PO and Toradol IM inj givne by her PCP 2 weeks ago Associated Signs And Symptoms: Positive: Negative. Negative: Dizziness, Seizure , Nausea, Vomiting, Sinus Pressure, Fever, Neck Pain, Neck Stiffness, Decreased LOC, Visual Changes Related History: Similar Episode/DX As: - Migraine WINTERS - Risk Factors SAH Risk Factors: Negative Meningitis Risk Factors: Negative SDH Risk Factors: Negative Temporal Arteritis Risk Factors: Negative - Allergies/Home Medications Allergies/Adverse Reactions: Allergies Allergy/AdvReac Type Severity Reaction Status Date / Time Adhesive Tape Allergy Rash Verified 02/13/20 14:06 diphenhydramine Allergy See Comment Verified 02/13/20 14:06 [From Benadryl] Penicillins Allergy Unknown Verified 02/13/20 14:06 Reaction Details FLAX SEED Allergy Rash Uncoded 02/13/20 14:06 Home Medications: Home Medications Albuterol HFA INHALER* [Ventolin HFA Inhaler*] 2 puff INH Q4H PRN 10/28/13 [ History Confirmed 09/18/19] Irbesartan (NF) [Avapro (NF)] 75 mg PO BID 11/14/17 [History Confirmed 09/18/19] Mirabegron (NF) [Myrbetriq (NF)] 50 mg PO QPM 11/14/17 [History Confirmed ] Pantoprazole TAB * [Protonix TAB (NF)] 40 mg PO WEEKLY 11/14/17 [History Confirmed 09/18/19] Simethicone TAB* [Mylicon TAB*] 80 mg PO AC PRN 11/14/17 [History Confirmed ] ValACYclovir (*) [Valtrex 500 mg (*)] 500 mg PO QAM 11/14/17 [History Confirmed 09/18/19] Amlodipine Besylate [Amlodipine 2.5 mg tab] 2.5 mg PO BID 01/29/19 [History Confirmed 09/18/19] Aspirin 81 mg CHEW TAB* 81 mg PO QPM 09/11/19 [History Confirmed 09/18/19] Gabapentin CAP(*) [Neurontin 300 CAP(*)] 600 mg PO BID 09/11/19 [History Confirmed 09/18/19] OXcarbazepine TAB(*) 300 mg PO BID 09/11/19 [History Confirmed 09/18/19] Acetaminophen [Tylenol Extra Strength] 1,000 mg PO BID 02/13/20 [History Confirmed 02/13/20] Rizatriptan Benzoate [Rizatriptan] 5 mg PO DAILY 02/13/20 [History Confirmed ] PMH/Surg Hx/FS Hx/Imm Hx Previously Healthy: Yes Cardiovascular History: Hypertension Respiratory History: Asthma GI/ History: Gastroesophageal Reflux - Surgical History Surgical History: Yes Surgery Procedure, Year, and Place: hysterectomy. x 4. tonsills. lumpectomy bilat shoulder - 2 SURGERIES. COLONOSCOPY- [place] 2015 [place] - Family History Known Family History: Positive: Cardiac Disease, Hypertension Negative: Diabetes - Social History Occupation: Retired Lives: With Family Alcohol Use: None Substance Use Type: None Smoking Status (MU): Former Smoker Type: Cigarettes Amount Used/How Often: 1/2 PPDX 4 YEARS Have You Smoked in the Last Year: No When Did the Patient Quit Smoking/Using Tobacco: 1973 - Immunization History Most Recent Tetanus Shot: Jul 2015 Review of Systems All Other Systems Reviewed And Are Negative: Yes Constitutional: Positive: Negative Skin: Positive: Negative Eyes: Positive: Negative ENT: Positive: Negative Respiratory: Positive: Negative Cardiovascular: Positive: Negative Gastrointestinal: Positive: Negative Genitourinary: Positive: Negative Motor: Positive: Negative Neurovascular: Positive: Negative Musculoskeletal: Positive: Negative Neurological/Mental Status: Positive: Headache Psychological: Positive: Negative Is Patient Immunocompromised?: No Physical Exam - Summary Physical Exam Summary: Vital Signs Reviewed: Yes General: well developed, well nourished female sitting in the examining w/o any apparent distress. Eyes: Positive: Conjunctiva Clear - -Eyes: sclera and conjunctiva clear, corneas grossly clear, PEERLA, EOMI, no nystagmus, no ptosis,no photophobia, normal fundoscopic exam, normal visual goldman,, Other: - -Head:scalp atraumatic , NT, no trigger points ENT: Positive: Normal ENT inspection, Hearing grossly normal, Pharynx normal, TMs normal - B/L external ear canals clear, Other: - No TMJ tenderness. Negative: Nasal congestion, Nasal drainage, Tonsillar swelling, Tonsillar exudate Dental Exam: Normal Neck: Positive: Supple, Nontender, No Lymphadenopathy Respiratory: Positive: Chest non-tender, Lungs clear, Normal breath sounds, No respiratory distress Cardiovascular: Positive: RRR, No Murmur, Pulses Normal, Brisk Capillary Refill Abdomen Description: Positive: Nontender, No Organomegaly, Soft. Negative: CVA Tenderness (R), CVA Tenderness (L) Bowel Sounds: Positive: Present Musculoskeletal: Positive: Strength Intact, ROM Intact, No Edema Neurological: Positive: Alert - A&OX3, CNII-XII WNL, speech, memory and expression WNL,, Muscle Tone Normal - Muscle strength 5/5 in both upper and lower extremities. Normal gait, negative Romberg test and good coordination finger to nose, heel to cantu WNL, sensation intact. Reflexes WNL Psychological Exam: Normal Skin: Positive: warm and dry , no rashes or petechiae observed Triage Information Reviewed: Yes Vital Signs: Initial Vital Signs Resp 16 02/13/20 13:54 Headache Course/Dx - Course Course Of Treatment: 65 y/o female presents to the urgent care c/o persistent Migraine WINTERS since January 29/2020. Pt reports she has Hx of Migraine WINTERS which has been managed by her PCP DR Odom. She saw her on the and he gave her a Toradol IM inj and Rx the Rizotriptan PO. She ahs also been taken Tylenol PO Extra-Strength w/ o any improvement. She states pain is on and off, but it seems not to resolve completely. She has been reading a lot and experiencing lack of sleep. She has been Rx new reading glasses she has been able to get due to the COVID 19 stay home order. Pt states WINTERS today is 7/10 diffuse and she experiences an aura w/ mild photophobia yesterday. She has [place] PO at home, but she doesn't want to take it unless WINTERS becomes very severe b/c it makes her constipated. Pt denies dizziness, fever, URI symptoms, SOB, cough, chest pain, weakness, numbness or tingling sensation over her extremities, abdominal pain, N/V/D. Denies Contact someone w/ COVID 19. Hx obtained. Pt is hemodynamically stable, A&OX3, Vital WNL. PE: WNL. Pt given Famotidine PO and Toradol IM inj to alleviate symptoms. Pt tolerated well medication and after 20min WINTERS decrease. Pt advised to continue taking Tylenol PO and Rizotriptan PO to alleviate symptoms. Strongly advised to schedule a f/u appt w/ her PCP for further management in her Migraine WINTERS. Also advised to f/u with her new reading glasses. Also to take her Melatonin PO and educated of sleep hygiene. Also recommended if her WINTERS worsens and she develops dizziness or vomiting to go immediately to the ER for further management. Pt's BP is elevated today and advised to decrease salt in diet, monitor BP and f/u with PCP if BP continues to be elevated for further management. D/C instructions explained. Pt understood and agreed and left the clinic hemodynamically stable, A&OX3 - Differential Dx/Diagnosis Differential Diagnosis/HQI/PQRI: TIA, Migraine, Sinus Headache, Temporal Arteritis, Tension Headache Provider Diagnosis: Migraine headache, Uncontrolled hypertension Discharge ED - Sign-Out/Discharge Documenting (check all that apply): Patient Departure - D/C home All imaging exams completed and their final reports reviewed: No Studies - Discharge Plan Condition: Stable Disposition: HOME Patient Education Materials: Migraine Headache (ED) Referrals: Odessa Odom MD [Primary Care Provider] - 3 Days Additional Instructions: 1- Please continue taking Tylenol PO q6hrs . You were given a Toradol IM inj today. 2- Please try to sleep and take your Melatonin PO as directed 3- Please crop picker your new prescription glasses to avoid straining your vision 4-If symptoms do not improve or worsen please f/u with your PCP or return to the urgent care for further evaluation and treatment. 5-If you develops severe headache with dizziness, visual disturbances or any neurological deficit go immediately to the ER for further treatment. 6- Your BP is elevated today and advised to decrease salt in diet, monitor BP and f/u with PCP for further management. - Billing Disposition and Condition Condition: STABLE Disposition: Home
== END 2020-02-13 14:50 | disposition home or self-care (01) ==
LOC: UCEAST 13:48
DX: G43.909 Migraine, unspecified, not intractable, without status migrainosus (principal); I10 Essential (primary) hypertension; J45.909 Unspecified asthma, uncomplicated; K21.9 Gastro-esophageal reflux disease without esophagitis; Z79.899 Other long term (current) drug therapy; Z88.0 Allergy status to penicillin; Z88.8 Allergy status to other drugs, medicaments and biological substances; Z91.018 Allergy to other foods; Z91.048 Other nonmedicinal substance allergy status; Z87.891 Personal history of nicotine dependence
CPT/HCPCS: 96372; 99212; A9270-GY; G0463; J1885